=== PATIENT | female | born 1985 | race Caucasian/White ===

== ENCOUNTER 2018-04-14 07:55 | Emergency (ER) | payer OTHER ==
--- OUTSIDE RECORDS SUMMARY | 2018-04-14 08:07 | XMS REPORT | Continuity of Care Document ---
:1985 External Reference #:[id number] Author Name RAJAN Huynh Address [address] [place] [address] Care Team Providers Name Role Phone Seema Chowdhury M.D. Primary Care Physician Unavailable Payers Type Date Identification Numbers Payment Provider Subscriber Effective: Policy Number: [id number] Medicaid/Computer Jocelin Srinivasan Josue 2008 Science Expires: 2011 Group Name: 1 1 [address] PayID: [id number] [place] [address] Effective: 2011 Policy Number: [id number] Wes Germainn Medicaid Expires: 2011 PayID: [id number] [address] [place] [id number] Effective: 2011 Policy Number: [id number] [employer] Option Jocelin Srinivasan Josue Expires: 2013 PayID: [id number] [address] [address] [place] [address] Effective: 2013 Policy Number: Wes Morataya Craig Iverson [id number] Medicaid Expires: 2016 PayID: [id number] [address] [place] [address] Effective: 2016 Policy Number: [id number] Wes Srinivasan Josue Medicaid PayID: [id number] [address] [place] [id number] Advance Directives Description No Information Available Problems Description No Active Problems Family History Date Family Member(s) Problem(s) Comments Father Healthy Mother Healthy Social History Type Date Description Comments Sex Unknown Lives With Spouse Lives With Daughters Has 2 boys and 4 girls at this point, currently (8-12 weeks) Diet Healthy, Well Balanced fruits and vegetables every day, chicken, hamburger, not much fried foods or desserts, water or juice to drink Pets 1 dog Pets 2 cats Pets Fish Pets Reptile Occupation Currently Working Daycare Tobacco Use Start: Unknown Never Smoked Cigarettes ETOH Use Denies alcohol use Recreational Drug Use Denies Drug Use Tobacco Use Start: Unknown Patient has never smoked Enjoy Exercising Enjoys exercising does some walking Currently Active Patient is currently sexually active Allergies, Adverse Reactions, Alerts Description No Known Drug Allergies Medications Medication Date Status Form Strength Qnty SIG Indications Ordering Provider No Active 08/14/ Active Unknown Medications 2017 No Active 09/26/ Hx Unknown Medications 2016 - 2016 Amoxicillin 09/26/ Hx Capsules 500mg 30cap take 1 J01.80 Ismael 2017 - s capsule by Chele 10/10/ mouth 3 times , 2017 per day for 10 days for infection Penicillin V 08/31/ Hx Tablets 500mg 30tab 1 po tid for 034.0 [facility] Potassium 2013 - s strep throat Job Flowers, 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 Fluconazole 08/31/ Hx Tablets 150mg 2tabs 1 po now, september 034.0 Zakintcaleb 2013 - repeat in 1 Job Flowers, 09/26/ week if sx [employer] 2016 still present No Active 11/02/ Hx Unknown Medications 2012 - 2013 Amoxicillin/Cla 09/08/ Hx Tablets 875-125mg 20tab 1 tablet bid 382.9 Rekha palencia 2012 - s x 10 days Erick, Potassium 11/02/ [employer] 2012 Amoxicillin 07/16/ Hx Tablets 875mg 20tab 1 tablet bid 461.8 Rekha 2011 - s x 10 days Erick, 11/02/ [employer] 2012 Cortisporin 09/11/ Hx Solution [id number] 1bott 3 drops right 388.70 Casandra 2010 - -1 le ear 4 times Job Flowers, 01/11/ daily for 5 [employer] 2011 days or until resolved Doxepin HCL 08/30/ Hx Capsules 10mg 30cap 1 po qhs prn 784.0 Shawnti 2010 - s insomnia and R. Storm, 01/11/ headache [employer] 2010 Return To Work 05/15/ Hx may return to [facility] 2010 - work without R. Lionel, 05/25/ limitations [employer] 2010 Amoxicillin 04/12/ Hx Tablets 500mg 30tab 1 po tid for 528.9 [facility] 2009 - s 10 days for R. Storm, 04/22/ ear infection [employer] 2009 Zolpidem 03/22/ Hx Tablets 10mg 15tab 1/2-1 pill po 780.52 [facility] Tartrate 2009 - s qhs prn R. Lionel, 04/12/ insomnia [employer] 2009 No Work 03/08/ Hx excuse due to 308.3 Blainewnti 2010 - illness until R. Lionel, 01/11/ further [employer] 2010 evaluation No School 03/08/ Hx missed class 308.3 Shawnti 2009 - today february R. Lionel, 2009 due [employer] 2009 to ailment, seen in clinic, please excuse Cefuroxime 01/18/ Hx Tablets 500mg 20tab 1 po bid for 382.9 [place] Axetil 2010 - s otitis media R. Storm, 02/08/ and sinusitis [employer] 2009 Hydrocodone/Sebas 01/18/ Hx Tablets 5-325mg 20twe 1 po q4-6 hrs 382.9 [place] taminophen 2010 - nty prn severe R. Storm, 04/12/ pain [employer] 2009 Azithromycin 01/13/ Hx Tablets 250mg 6tabs 2 po qd first Seema 2009 - day then 1 po P. 01/25/ qd x 4 days Blegen, 2010 M.D. Gabapentin 01/11/ Hx Capsules 300mg 60cap 1 po qhs for 784.0 Shawnti 2009 - s 2 days then R. Lionel, 04/12/ bid for [employer] 2010 headache Ciprofloxacin 01/11/ Hx Tablets 250mg 10tab 1 po bid for 599.0 [facility] HCL 2010 - s urine R. Storm, 01/13/ infection [employer] 2009 Butalbital/Acet 01/08/ Hx Tablets 50-500-40 10ten 1 or 2 po prn 307.81 [place] aminophen/Caffe 2010 - mg headache Job Flowers, ine 01/25/ [employer] 2009 No Work 09/28/ Hx excuse due to 465.9 Shawnti 2009 - illness, september Job Flowers, 10/08/ return Friday [facility]- 2009October 02 Sertraline HCL 09/28/ Hx Tablets 50mg 90tab one po daily 307.81 Shawnti 2009 - s for anxiety Job Flowers, [employer] 2012 No Work Hx excuse due to 462 Shawn[facility] 2009 - illness, september Job Flowers, 02/08/ return when [facility]- 2009 fever free and feeling better for at least 24 hours Penicillin V 08/31/ Hx Tablets 500mg 30tab 1 po tid for 462 [place] Potassium 2009 - s pharyngitis Job Flowers, [facility] 2009 Sertraline HCL 07/20/ Hx Tablets 25mg 90tab one po daily 307.81 [place] 2009 - s for Job Flowers, 09/28/ adjustment [facility] 2009 reaction Fluoxetine 06/22/ Hx Capsules 10mg 90cap 1 po daily 307.81 [place] 2009 - s Job Flowers, 07/20/ [employer] 2009 Flexeril 06/22/ Hx Tablets 10mg 30tab 1/2 to 1 pill 309.0 [facility] 2009 - s q8hr prn Job Flowers, 01/25/ tension [facility] 2009 headache Fluoxetine HCL 04/20/ Hx Capsules 20mg 90cap 1 po daily Shawn[facility] 2008 - s for R. Lionel, 01/25/ depression [employer] 2009 Colace 03/13/ Hx Capsules 100mg 30cap 1 po qd 564.00 [facility] 2008 - s Job Flowers, 01/25/ [employer] 2009 Senna-Ex 03/13/ Hx Tablets 15mg 30tab 1 po daily 564.00 Shawnti 2008 - s for R. Lionel, 01/25/ constipation [facility] 2009 Amoxicillin-Pot 02/17/ Hx Tablets 875-125mg 20tab 1 po bid for 461.0 [place] Clavulanate 2008 - s 10 days for Job Flowers, 02/27/ infection [employer] 2008 Metamucil 02/10/ Hx Capsules 0.52gm 1mont 1 po bid 789.09 Shawnti 2009 - h Job Flowers, 01/25/ [employer] 2009 Amoxicillin 10/09/ Hx Capsules 250mg 30cap 1 Cap Three Filomena 2002 - s Times Daily K.WPastora 09/26/ Yumiko Mercado M.D. Medications Administered in Office Medication Date Status Form Strength Qnty SIG Indications Ordering Provider TB,Intradermal Administered Injection Rekha (PPD, Mantoux) 013 RAJAN Suarez Immunizations CPT Code Status Date Vaccine Lot # [id number] Given 03/20/2018 Influenza Virus Vaccine, Quadrivalent, 3 Yr > [id number] Quad, Preserv Free [id number] Given 04/26/2014 Influenza Virus Vaccine, Quadrivalent, 3 Yr > [id number] Quad, Preserv Free Vital Signs Date Vital Result Comment 03/20/2018 10:13am Weight 212.00 lb Weight 96.163 kg BP Systolic 140 mmHg BP Diastolic 80 mmHg Heart Rate 78 /min Body Temperature 98.3 F Respiratory Rate 16 /min Height 62 inches 5'2" BMI (Body Mass Index) 38.8 kg/m2 O2 % BldC Oximetry 98 % 09/26/2016 4:52pm Weight 202.00 lb Weight 91.627 kg BP Systolic 147 mmHg BP Diastolic 87 mmHg Heart Rate 92 /min Body Temperature 99.3 F O2 % BldC Oximetry 98 % 08/31/2013 11:12am Weight 200.00 lb Weight 90.720 kg BP Systolic 128 mmHg BP Diastolic 80 mmHg Heart Rate 76 /min Body Temperature 98.2 F Height 62.5 inches 5'2.50" BMI (Body Mass Index) 36.0 kg/m2 11/02/2012 8:14am Weight 198.00 lb Weight 89.813 kg BP Systolic 122 mmHg BP Diastolic 80 mmHg Heart Rate 80 /min Height 62.25 inches 5'2.25" BMI (Body Mass Index) 35.9 kg/m2 Last Menstrual Period [id number] 09/08/2012 10:57am Weight 202.00 lb Weight 91.627 kg BP Systolic 120 mmHg BP Diastolic 62 mmHg Heart Rate 72 /min Body Temperature 98.3 F O2 % BldC Oximetry 98 % 07/17/2011 11:41am Weight 194.00 lb Weight 87.998 kg BP Systolic 102 mmHg BP Diastolic 60 mmHg Heart Rate 88 /min Body Temperature 97.3 F 01/11/2011 8:04am Weight 196.00 lb Weight 88.906 kg BP Systolic 104 mmHg BP Diastolic 76 mmHg Heart Rate 92 /min Body Temperature 98.4 F O2 % BldC Oximetry 98 % AT Room Air 09/11/2010 1:22pm Weight 185.00 lb Weight 83.916 kg BP Systolic 136 mmHg BP Diastolic 84 mmHg Body Temperature 98.1 F 08/30/2010 8:34am Weight 181.00 lb Weight 82.102 kg BP Systolic 122 mmHg BP Diastolic 80 mmHg Heart Rate 78 /min O2 % BldC Oximetry 97 % 04/12/2010 9:35am Weight 179.00 lb Weight 81.194 kg BP Systolic 130 mmHg BP Diastolic 100 mmHg Heart Rate 84 /min Body Temperature 98.6 F 03/22/2010 9:29am Weight 181.00 lb Weight 82.102 kg BP Systolic 120 mmHg BP Diastolic 90 mmHg Heart Rate 78 /min 03/08/2010 2:19pm Weight 181.00 lb Weight 82.102 kg BP Systolic 138 mmHg BP Diastolic 70 mmHg Heart Rate 92 /min Body Temperature 98.2 F 01/25/2010 2:54pm Weight 188.00 lb Weight 85.277 kg BP Systolic 124 mmHg BP Diastolic 70 mmHg Heart Rate 80 /min Body Temperature 98.5 F 01/18/2010 4:12pm Weight 186.00 lb Weight 84.370 kg BP Systolic 120 mmHg BP Diastolic 90 mmHg Heart Rate 68 /min Body Temperature 98.7 F O2 % BldC Oximetry 98 % AT Room Air 01/13/2010 10:21am Weight 185.00 lb Weight 83.916 kg BP Systolic 128 mmHg BP Diastolic 100 mmHg Heart Rate 76 /min Body Temperature 98.8 F 01/11/2010 3:31pm Weight 184.00 lb Weight 83.462 kg BP Systolic 118 mmHg BP Diastolic 80 mmHg Heart Rate 72 /min 01/08/2010 4:16pm Weight 186.00 lb Weight 84.370 kg BP Systolic 102 mmHg BP Diastolic 80 mmHg Heart Rate 72 /min 09/28/2009 8:14am Weight 184.00 lb Weight 83.462 kg BP Systolic 124 mmHg BP Diastolic 82 mmHg Heart Rate 78 /min Body Temperature 97.6 F 08/31/2009 2:31pm Weight 174.00 lb Weight 78.926 kg BP Systolic 114 mmHg BP Diastolic 78 mmHg Heart Rate 76 /min Body Temperature 98.8 F 08/10/2009 8:57am Weight 172.00 lb Weight 78.019 kg BP Systolic 100 mmHg BP Diastolic 60 mmHg Heart Rate 78 /min 07/20/2009 8:41am Weight 172.00 lb Weight 78.019 kg BP Systolic 118 mmHg BP Diastolic 80 mmHg Heart Rate 68 /min 06/22/2009 2:53pm Weight 168.00 lb Weight 76.205 kg BP Systolic 128 mmHg BP Diastolic 83 mmHg Heart Rate 60 /min Body Temperature 98.6 F O2 % BldC Oximetry 97 % At Room Air 05/15/2009 8:50am Weight 170.00 lb Weight 77.112 kg BP Systolic 108 mmHg BP Diastolic 84 mmHg Heart Rate 84 /min 04/20/2009 4:48pm Weight 167.00 lb Weight 75.751 kg BP Systolic 120 mmHg BP Diastolic 68 mmHg Heart Rate 80 /min 03/13/2009 8:31am Weight 167.00 lb Weight 75.751 kg BP Systolic 110 mmHg BP Diastolic 74 mmHg Heart Rate 72 /min 02/17/2009 3:21pm Weight 167.00 lb Weight 75.751 kg BP Systolic 118 mmHg BP Diastolic 72 mmHg Heart Rate 80 /min Body Temperature 98.2 F 02/10/2009 10:16am Weight 156.00 lb Weight 70.762 kg BP Systolic 118 mmHg BP Diastolic 68 mmHg Heart Rate 72 /min Body Temperature 97.6 F Last Menstrual Period 0 still nursing 10/09/2001 11:58am Weight 126.00 lb BP Systolic 120 mmHg BP Diastolic 66 mmHg Body Temperature 98.6 F Respiratory Rate 16 /min To Talk WH Weight Percentile 57th 10/09/2001 11:53am Weight Percentile <5th 10/01/2001 3:02pm Weight 128.00 lb BP Systolic 96 mmHg BP Diastolic 60 mmHg Heart Rate 72 /min Body Temperature 98.5 F Weight Percentile 60th Results Test Date Facility Test Result H/L Range Note Wound 08/14/2017 [facility] Wound/Misc SEE RESULT 1, 2 Culture/Sensi [phone] Culture-Gram BELOW Stain Urinalysis 12/20/2015 [facility] Urine Color Yellow Profile [phone] Urine Appearance Cloudy Urine Specific [place] 1.017 1.010-1.030 Urine pH 6.0 5-9 Urine Urobilinogen Negative Negative Urine Ketones Negative Negative Urine Protein Negative Negative Urine Leukocytes Trace Negative Urine Blood 1+ Negative * * Negative 3 Urine Nitrite Negative Negative Urine Bilirubin Negative Negative Urine Glucose Negative Negative Urine White Blood Cell 1+(6-10/hpf) Absent Urine Red Blood Cell 2+(6-10/hpf) Absent Urine Bacteria 1+ Absent Urine Squamous Epithelial Cell Present Absent Laboratory test 12/20/2015 [facility] Urine Culture SEE RESULT 4 finding [phone] BELOW Urinalysis Profile 11/04/2015 [facility] Urine Color Yellow [phone] Urine Appearance Cloudy Urine Specific [place] 1.018 1.010-1.030 Urine pH 5.0 5-9 Urine Urobilinogen Negative Negative Urine Ketones 2+ Negative Urine Protein Negative Negative Urine Leukocytes 2+ Negative Urine Blood 1+ Negative Urine Nitrite Negative Negative Urine Bilirubin Negative Negative Urine Glucose Negative Negative Urine White Blood Cell 3+(>20/hpf) Absent Urine Red Blood Cell 1+(3-5/hpf) Absent Urine Bacteria 1+ Absent Urine Squamous Epithelial Cell Present Absent Laboratory test 11/04/2015 [facility] Urine Culture SEE RESULT 5 finding [phone] BELOW Urine DIP 11/02/2012 [facility] House Lab Leukocytes NEG Neg [phone] Urine Nitrites NEG Neg Urine pH 5 5-6 Total Protein, Urine NEG Neg Urine Glucose NORM Norm Urine Ketones NEG Neg Urobilinogen NORM Norm Urine Bilirubin NEG Neg Urine Blood TRACE-MENSES Neg Specific [place] 1.02 1.01-1.02 (HCG) 02/07/2012 [facility] Specific 1.021 1.010-1.030 Urine [phone] [place] Urine NEGATIVE Negative 6 CBC Auto Diff 01/28/2012 [facility] White Blood 6.2 CUMM 4.8-10.8 [phone] Count Red Cell Count 4.36 CUMM 4.2-5.4 Hemoglobin 14.0 g/dL 12.0-16.0 Hematocrit 41 % 35-47 Mean Corpuscular Volume 93 um3 79-97 Mean Corpuscular Hemoglob 32 pg High 27-31 Mean Corpuscular HGB Cone 34 g/dL 32-36 Redcell Distribution WDTH 14 % 10.5-15 Platelet Count 157 CUMM 150-450 Mean Platelet Volume 9.4 um3 7.4-10.4 Gran % 56.5 % 38-83 Lymph % 35.2 % 20-45 Mononuclear % 6.9 % 1-9 Eosinophil % 1.1 % 0-6 Basophil % 0.3 % 0-2 Abs Lymphs 2.2 1.0-4.8 Abs Mononuclear 0.4 0-0.8 Absolute Neutrophil Count 3.5 1.5-7.7 Abs Eosinophils 0.1 0-0.6 Abs Basophils 0 0-0.2 Basic Metabolic 01/28/2012 [facility] Sodium 138 mmol /L 135-145 Panel [phone] Potassium 4.1 mmol/L 3.5-5.0 Chloride 104 mmol/L 101-111 Co2 (Carbon Dioxide) 27.0 mmol/L 22-32 Anion Gap 7.0 mmol/L 2-11 7 Glucose 80 mg/dL 70-100 BUN 11 mg/dL 6-24 Creatinine 0.8 mg/dL 0.50-1.40 One Over Creatinine 1.25 BUN/Creatinine Ratio 13.8 8-20 Calcium 9.7 mg/dL 8.1-9.9 eGFR Non- 86.0 > 60 eGFR 110.7 > 60 8 Blood 08/22/2011 [facility] M <SEE 9 Culture [phone] NOTE> CBC Auto 08/22/2011 [facility] White 11.6 CUMM High 4.8-1 Diff [phone] Blood 0.8 Count Red Cell Count 3.71 CUMM Low 4.2-5.4 Hemoglobin 12.3 g/dL 12.0-16.0 Hematocrit 34 % Low 35-47 Mean Corpuscular Volume 93 um3 79-97 Mean Corpuscular Hemoglob 33 pg High 27-31 Mean Corpuscular HGB Cone 36 g/dL 32-36 Redcell Distribution WDTH 14 % 10.5-15 Platelet Count 148 CUMM Low 150-450 Mean Platelet Volume 9.2 um3 7.4-10.4 Gran % 76.4 % 38-83 Lymph % 15.0 % Low 25-47 Mononuclear % 8.1 % 1-9 Eosinophil % 0.3 % 0-6 Basophil % 0.2 % 0-2 Abs Lymphs 1.7 1.0-4.8 Abs Mononuclear 0.9 High 0-0.8 Absolute Neutrophil Count 9.0 High 1.5-7.7 Abs Eosinophils 0 0-0.6 Abs Basophils 0 0-0.2 Laboratory test 08/22/2011 [facility] Lipase 19 U/L Low 22-51 finding [phone] Urinalysis 08/22/2011 [facility] Ua Color YELLOW Yellow W/Microscopic [phone] Appearance-Urine CLEAR Clear Specific [place]-Ur 1.011 1.010-1.030 Esterase-Urine 3+ Negative Nitrite NEGATIVE Negative Mlksssxvqzai-Av-YYH NEGATIVE Negative Protein-Urine TRACE Negative PH-Urine 5.5 5-9 Blood-Urine 2+ Negative Ketones-Urine NEGATIVE Negative Bilirubin-Ur NEGATIVE Negative Glucose-Urine NEGATIVE Negative WBC-Urine TNTC 0-5 RBC-Urine TNTC 0-2 Mucus Urine SMALL None Epith Cells-Ur FEW None Bacteria-Urine 1+ None Comp Metabolic Panel 08/22/2011 [facility] Sodium 141 mmol/L 135-145 [phone] Potassium 4.9 mmol/L 3.5-5.0 Chloride 107 mmol/L 101-111 Co2 (Carbon Dioxide) 25.0 mmol/L 22-32 Anion Gap 9.0 mmol/L 2-11 10 Glucose 95 mg/dL 70-100 BUN 6 mg/dL 6-24 Creatinine 0.5 mg/dL Low 0.50-1.40 One Over Creatinine 2.00 BUN/Creatinine Ratio 12.0 8-20 Calcium 8.9 mg/dL 8.1-9.9 Total Protein 5.8 GM/DL Low 6.2-8.1 Albumin 3.2 GM/DL Low 3.6-5.4 Globulin 2.6 GM/DL 2-4 Albumin/Globulin Ratio 1.2 1-3 Bilirubin Total 0.7 mg/dL 0.4-1.5 11 Alkaline Phosphatase 75 U/L 30-110 Alt (SGPT) 12 U/L Low 14-54 Ast (Sgot) 16 U/L 12-42 eGFR Non- 148.0 > 60 eGFR 190.3 > 60 12 Comp Metabolic Panel 08/03/2011 [facility] Sodium 137 mmol/L 135-145 [phone] Potassium 4.1 mmol/L 3.5-5.0 Chloride 105 mmol/L 101-111 Co2 (Carbon Dioxide) 25.0 mmol/L 22-32 Anion Gap 7.0 mmol/L 2-11 13 Glucose 93 mg/dL 70-100 BUN 5 mg/dL Low 6-24 Creatinine 0.5 mg/dL Low 0.50-1.40 One Over Creatinine 2.00 BUN/Creatinine Ratio 10.0 8-20 Calcium 8.6 mg/dL 8.1-9.9 Total Protein 6.6 GM/DL 6.2-8.1 Albumin 3.3 GM/DL Low 3.6-5.4 Globulin 3.3 GM/DL 2-4 Albumin/Globulin Ratio 1.0 1-3 Bilirubin Total 0.7 mg/dL 0.4-1.5 14 Alkaline Phosphatase 66 U/L 30-110 Alt (SGPT) 14 U/L 14-54 Ast (Sgot) 16 U/L 12-42 eGFR Non- 148.0 > 60 eGFR 190.3 > 60 15 Laboratory test 08/03/2011 [facility] C Reactive 6.6 mg/dL High Less Than finding [phone] Protein 0.5 CBC Auto Diff 08/03/2011 [facility] White Blood 10.0 CUMM 4.8-10.8 [phone] Count Red Cell Count 3.91 CUMM Low 4.2-5.4 Hemoglobin 12.6 g/dL 12.0-16.0 Hematocrit 36 % 35-47 Mean Corpuscular Volume 93 um3 79-97 Mean Corpuscular Hemoglob 32 pg High 27-31 Mean Corpuscular HGB Cone 35 g/dL 32-36 Redcell Distribution WDTH 14 % 10.5-15 Platelet Count 159 CUMM 150-450 Mean Platelet Volume 9.7 um3 7.4-10.4 16 Manual Differential 08/03/2011 [facility] Polysegmented 76 % 38-83 [phone] Neutrophil Lymphocyte 15 % Low 25-47 Monocyte 8 % 0-13 Eosinophil 1 % 0-6 Absolute Neutrophil Count 7.6 RBC Morphology NORMAL Urinalysis 08/03/2011 [facility] Ua Color WATLER Yellow W/Microscopic [phone] Appearance-Urine TURBID Clear Specific [place]-Ur 1.021 1.010-1.030 Esterase-Urine 3+ Negative Nitrite NEGATIVE Negative Dcgziffteupm-Lv-UKY NEGATIVE Negative Protein-Urine 3+ Negative PH-Urine 6.0 5-9 Blood-Urine 3+ Negative Ketones-Urine NEGATIVE Negative Bilirubin-Ur NEGATIVE Negative Glucose-Urine NEGATIVE Negative WBC-Urine TNTC 0-5 RBC-Urine TNTC 0-2 Bacteria-Urine 4+ None Crystals-Urine (SEE NOTE) None 17 CBC No Diff 07/19/2011 [facility] White Blood 7.1 CUMM 4.8-10.8 [phone] Count Red Cell Count 4.05 CUMM Low 4.2-5.4 Hemoglobin 12.8 g/dL 12.0-16.0 Hematocrit 37 % 35-47 Mean Corpuscular Volume 91 um3 79-97 Mean Corpuscular Hemoglob 32 pg High 27-31 Mean Corpuscular HGB Cone 35 g/dL 32-36 Redcell Distribution WDTH 14 % 10.5-15 Platelet Count 134 CUMM Low 150-450 Mean Platelet Volume 9.4 um3 7.4-10.4 Comp Metabolic Panel 07/19/2011 [facility] Sodium 135 mmol/L 135-145 [phone] Potassium 3.5 mmol/L 3.5-5.0 Chloride 105 mmol/L 101-111 Co2 (Carbon Dioxide) 21.0 mmol/L Low 22-32 Anion Gap 9.0 mmol/L 2-11 18 Glucose 130 mg/dL High 70-100 BUN 8 mg/dL 6-24 Creatinine 0.6 mg/dL 0.50-1.40 One Over Creatinine 1.66 BUN/Creatinine Ratio 13.3 8-20 Calcium 8.3 mg/dL 8.1-9.9 Total Protein 6.6 GM/DL 6.2-8.1 Albumin 3.3 GM/DL Low 3.6-5.4 Globulin 3.3 GM/DL 2-4 Albumin/Globulin Ratio 1.0 1-3 Bilirubin Total 1.0 mg/dL 0.4-1.5 19 Alkaline Phosphatase 67 U/L 30-110 Alt (SGPT) 14 U/L 14-54 Ast (Sgot) 22 U/L 12-42 eGFR Non- 119.9 > 60 eGFR 154.2 > 60 20 Urinalysis 07/19/2011 [facility] Ua Color WALTER Yellow W/Microscopic [phone] Appearance-Urine CLEAR Clear Specific [place]-Ur 1.027 1.010-1.030 Esterase-Urine NEGATIVE Negative Nitrite NEGATIVE Negative Uovyeqlnsskr-Zk-ZHU NEGATIVE Negative Protein-Urine 1+ Negative PH-Urine 5.5 5-9 Blood-Urine 3+ Negative Ketones-Urine 3+ Negative Bilirubin-Ur SEE ICTOTEST Negative Glucose-Urine NEGATIVE Negative WBC-Urine RARE 0-5 RBC-Urine 15-20 0-2 Mucus Urine LARGE None Epith Cells-Ur MANY None Laboratory test 07/19/2011 [facility] Ictotest NEGATIVE 21 finding [phone] CBC Auto Diff 11/20/2010 [facility] White Blood 8.4 CUMM 4.8-10 [phone] Count .8 Red Cell Count 5.00 CUMM 4.2-5.4 Hemoglobin 15.6 g/dL 12.0-16.0 Hematocrit 46 % 35-47 Mean Corpuscular Volume 93 um3 79-97 Mean Corpuscular Hemoglob 31 pg 27-31 Mean Corpuscular HGB Cone 34 g/dL 32-36 Redcell Distribution WDTH 14 % 10.5-15 Platelet Count 195 CUMM 150-450 Mean Platelet Volume 9.2 um3 7.4-10.4 Gran % 74.2 % 38-83 Lymph % 15.8 % Low 25-47 Mononuclear % 9.1 % High 1-9 Eosinophil % 0.6 % 0-6 Basophil % 0.3 % 0-2 Abs Lymphs 1.3 1.0-4.8 Abs Mononuclear 0.8 0-0.8 Absolute Neutrophil Count 6.2 1.5-7.7 Abs Eosinophils 0.1 0-0.6 Abs Basophils 0 0-0.2 22 Comp Metabolic Panel 11/20/2010 [facility] Sodium 138 mmol/L 135-145 [phone] Potassium 3.7 mmol/L 3.5-5.0 Chloride 108 mmol/L 101-111 Co2 (Carbon Dioxide) 21.0 mmol/L Low 22-32 Anion Gap 9.0 mmol/L 2-11 23 Glucose 123 mg/dL High 70-100 BUN 17 mg/dL 6-24 Creatinine 0.70 mg/dL 0.50-1.40 One Over Creatinine 1.40 BUN/Creatinine Ratio 24.3 High 8-20 Calcium 9.4 mg/dL 8.1-9.9 Total Protein 8.3 GM/DL High 6.2-8.1 Albumin 4.8 GM/DL 3.6-5.4 Globulin 3.5 GM/DL 2-4 Albumin/Globulin Ratio 1.4 1-3 Bilirubin Total 1.8 mg/dL High 0.4-1.5 24 Alkaline Phosphatase 80 U/L 30-110 Alt (SGPT) 17 U/L 14-54 Ast (Sgot) 20 U/L 12-42 eGFR Non- 101.1 > 60 eGFR 130.1 > 60 25 Laboratory test 11/20/2010 [facility] Magnesium 2.1 mg/dL 1.7-2.6 finding [phone] Lipase 20 U/L Low 22-51 (HCG) Serum NEGATIVE Negative 26 Urinalysis 11/20/2010 [facility] Ua Color WALTER Yellow W/Microscopic [phone] Appearance-Urine CLEAR Clear Specific [place]-Ur 1.031 High 1.010-1.030 Esterase-Urine NEGATIVE Negative Nitrite NEGATIVE Negative Ayvoalubimud-Xe-UEJ NEGATIVE Negative Protein-Urine 1+ Negative PH-Urine 6.0 5-9 Blood-Urine 1+ Negative Ketones-Urine NEGATIVE Negative Bilirubin-Ur SEE ICTOTEST Negative Glucose-Urine NEGATIVE Negative WBC-Urine 0-2 0-5 RBC-Urine 2-3 0-2 Mucus Urine SMALL None Epith Cells-Ur MODERATE None Laboratory test 11/20/2010 [facility] Ictotest NEGATIVE 27 finding [phone] CBC Auto Diff 08/26/2010 [facility] White Blood 7.2 CUMM 4.8-10 [phone] Count .8 Red Cell Count 4.74 CUMM 4.2-5.4 Hemoglobin 14.8 g/dL 12.0-16.0 Hematocrit 43 % 35-47 Mean Corpuscular Volume 90 um3 79-97 Mean Corpuscular Hemoglob 31 pg 27-31 Mean Corpuscular HGB Cone 35 g/dL 32-36 Redcell Distribution WDTH 12 % 10.5-15 Platelet Count 158 CUMM 150-450 Mean Platelet Volume 9.0 um3 7.4-10.4 Gran % 61.0 % 38-83 Lymph % 28.6 % 25-47 Mononuclear % 8.7 % 1-9 Eosinophil % 1.0 % 0-6 Basophil % 0.7 % 0-2 Abs Lymphs 2.1 1.0-4.8 Abs Mononuclear 0.6 0-0.8 Absolute Neutrophil Count 4.3 1.5-7.7 Abs Eosinophils 0.1 0-0.6 Abs Basophils 0.1 0-0.2 Basic Metabolic 08/26/2010 [facility] Sodium 138 mmol /L 135-145 Panel [phone] Potassium 4.2 mmol/L 3.5-5.0 Chloride 103 mmol/L 101-111 Co2 (Carbon Dioxide) 27.0 mmol/L 22-32 Anion Gap 8.0 mmol/L 2-11 28 Glucose 97 mg/dL 70-100 BUN 17 mg/dL 6-24 Creatinine 0.80 mg/dL 0.50-1.40 One Over Creatinine 1.20 BUN/Creatinine Ratio 21.3 High 8-20 Calcium 9.6 mg/dL 8.1-9.9 eGFR Non- 86.7 > 60 eGFR 111.5 > 60 29 PT W/Inr 08/26/2010 [facility] Inr 1.08 0.82-1.17 30 [phone] Protime 12.8 SEC 10.2-14.8 31 Laboratory test 08/26/2010 [facility] D Dimer < 200 Less 32 finding [phone] Quantitative NG/ML Than 230 (HCG) Serum NEGATIVE Negative 33 CBC Auto Diff 07/31/2010 [facility] White Blood 5.2 CUMM 4.8-10.8 34 [phone] Count Red Cell Count 4.57 CUMM 4.2-5.4 Hemoglobin 14.2 g/dL 12.0-16.0 Hematocrit 41 % 35-47 Mean Corpuscular Volume 90 um3 79-97 Mean Corpuscular Hemoglob 31 pg 27-31 Mean Corpuscular HGB Cone 35 g/dL 32-36 Redcell Distribution WDTH 13 % 10.5-15 Platelet Count 165 CUMM 150-450 Mean Platelet Volume 8.5 um3 7.4-10.4 Gran % 57.4 % 38-83 Lymph % 32.3 % 25-47 Mononuclear % 8.3 % 1-9 Eosinophil % 1.2 % 0-6 Basophil % 0.8 % 0-2 Abs Lymphs 1.7 1.0-4.8 Abs Mononuclear 0.4 0-0.8 Absolute Neutrophil Count 3.0 1.5-7.7 Abs Eosinophils 0.1 0-0.6 Abs Basophils 0 0-0.2 Comp Metabolic Panel 07/31/2010 [facility] Sodium 136 mmol/L 135-145 [phone] Potassium 4.1 mmol/L 3.5-5.0 Chloride 105 mmol/L 101-111 Co2 (Carbon Dioxide) 28.0 mmol/L 22-32 Anion Gap 3.0 mmol/L 2-11 35 Glucose 94 mg/dL 70-100 BUN 12 mg/dL 6-24 Creatinine 0.60 mg/dL 0.50-1.40 One Over Creatinine 1.60 BUN/Creatinine Ratio 20.0 8-20 Calcium 9.3 mg/dL 8.1-9.9 Total Protein 7.3 GM/DL 6.2-8.1 Albumin 4.2 GM/DL 3.6-5.4 Globulin 3.1 GM/DL 2-4 Albumin/Globulin Ratio 1.4 1-3 Bilirubin Total 0.7 mg/dL 0.4-1.5 36 Alkaline Phosphatase 75 U/L 30-110 Alt (SGPT) 12 U/L Low 14-54 Ast (Sgot) 16 U/L 12-42 eGFR Non- 120.8 > 60 eGFR 155.4 > 60 37 Urinalysis 07/31/2010 [facility] Ua Color YELLOW Yellow W/Microscopic [phone] Appearance-Urine CLEAR Clear Specific [place]-Ur 1.019 1.010-1.030 Esterase-Urine NEGATIVE Negative Nitrite NEGATIVE Negative Shbmfrwohagw-Ms-MOY NEGATIVE Negative Protein-Urine NEGATIVE Negative PH-Urine 6.5 5-9 Blood-Urine TRACE Negative Ketones-Urine NEGATIVE Negative Bilirubin-Ur NEGATIVE Negative Glucose-Urine NEGATIVE Negative WBC-Urine 0-2 0-5 RBC-Urine 1-3 0-2 Epith Cells-Ur FEW None Bacteria-Urine TRACE None 05/01/2010 [facility] Specific > 1.060 High 1.010-1.030 (HCG) Urine [phone] [place] Urine NEGATIVE Negative 38 Laboratory test 04/30/2010 [facility] Lipase 15 U/L Low 22-51 finding [phone] Manual 04/30/2010 [facility] Polysegmented 86 % High 38-83 Differential [phone] Neutrophil Lymphocyte 6 % Low 25-47 Monocyte 8 % 0-13 Absolute Neutrophil Count 9.7 RBC Morphology NORMAL CBC With 04/30/2010 [facility] White Blood 11.3 CUMM High 4.8-10.8 Electronic Diff [phone] Count Red Cell Count 4.70 CUMM 4.2-5.4 Hemoglobin 14.9 g/dL 12.0-16.0 Hematocrit 42 % 35-47 Mean Corpuscular Volume 90 um3 79-97 Mean Corpuscular Hemoglob 32 pg High 27-31 Mean Corpuscular HGB Cone 35 g/dL 32-36 Redcell Distribution WDTH 13 % 10.5-15 Platelet Count 212 CUMM 150-450 Mean Platelet Volume 9.0 um3 7.4-10.4 Laboratory test 04/30/2010 [facility] Ictotest NEGATIVE 39 finding [phone] Urinalysis 04/30/2010 [facility] Ua Color WALTER Yellow W/Microscopic [phone] Appearance-Urine CLEAR Clear Specific [place]-Ur 1.029 1.010-1.030 Esterase-Urine NEGATIVE Negative Nitrite NEGATIVE Negative Yvpvgmkerqrc-Tr-UAR NEGATIVE Negative Protein-Urine 1+ Negative PH-Urine 6.0 5-9 Blood-Urine 1+ Negative Ketones-Urine TRACE Negative Bilirubin-Ur SEE ICTOTEST Negative Glucose-Urine NEGATIVE Negative WBC-Urine 0-2 0-5 RBC-Urine 0-2 0-2 Epith Cells-Ur FEW None Bacteria-Urine 2+ None (HCG) 04/30/2010 [facility] Specific 1.029 1.010-1.030 Urine [phone] [place] Urine NEGATIVE Negative 40 Comp Metabolic Panel 04/30/2010 [facility] Sodium 143 mmol/L 135-145 [phone] Potassium 4.7 mmol/L 3.5-5.0 Chloride 106 mmol/L 101-111 Co2 (Carbon Dioxide) 26.0 mmol/L 22-32 Anion Gap 11.0 mmol/L 2-11 41 Glucose 130 mg/dL High 70-100 BUN 11 mg/dL 6-24 Creatinine 0.70 mg/dL 0.50-1.40 One Over Creatinine 1.40 BUN/Creatinine Ratio 15.7 8-20 Calcium 10.1 mg/dL High 8.1-9.9 Total Protein 8.7 GM/DL High 6.2-8.1 Albumin 4.9 GM/DL 3.6-5.4 Globulin 3.8 GM/DL 2-4 Albumin/Globulin Ratio 1.3 1-3 Bilirubin Total 2.0 mg/dL High 0.4-1.5 42 Alkaline Phosphatase 80 U/L 30-110 Alt (SGPT) 16 U/L 14-54 Ast (Sgot) 30 U/L 12-42 eGFR Non- 107.5 > 60 eGFR 130.1 > 60 43 CBC With 04/09/2010 [facility] White Blood 4.9 CUMM 4.8-10.8 Electronic Diff [phone] Count Red Cell Count 4.39 CUMM 4.2-5.4 Hemoglobin 13.9 g/dL 12.0-16.0 Hematocrit 40 % 35-47 Mean Corpuscular Volume 92 um3 79-97 Mean Corpuscular Hemoglob 32 pg High 27-31 Mean Corpuscular HGB Cone 35 g/dL 32-36 Redcell Distribution WDTH 13 % 10.5-15 Platelet Count 130 CUMM Low 150-450 Mean Platelet Volume 7.7 um3 7.4-10.4 Gran % 67.0 % 38-83 Lymph % 22.4 % Low 25-47 Mononuclear % 9.7 % High 1-9 Eosinophil % 0.6 % 0-6 Basophil % 0.3 % 0-2 Abs Lymphs 1.1 1.0-4.8 Abs Mononuclear 0.5 0-0.8 Absolute Neutrophil Count 3.2 1.5-7.7 Abs Eosinophils 0 0-0.6 Abs Basophils 0 0-0.2 Comp Metabolic Panel 04/09/2010 [facility] Sodium 139 mmol/L 135-145 [phone] Potassium 3.9 mmol/L 3.5-5.0 Chloride 103 mmol/L 101-111 Co2 (Carbon Dioxide) 29.0 mmol/L 22-32 Anion Gap 7.0 mmol/L 2-11 44 Glucose 93 mg/dL 70-100 45 BUN 11 mg/dL 6-24 Creatinine 0.60 mg/dL 0.50-1.40 One Over Creatinine 1.60 BUN/Creatinine Ratio 18.3 8-20 Calcium 9.0 mg/dL 8.1-9.9 Total Protein 7.6 GM/DL 6.2-8.1 Albumin 4.0 GM/DL 3.6-5.4 Globulin 3.6 GM/DL 2-4 Albumin/Globulin Ratio 1.1 1-3 Bilirubin Total 0.9 mg/dL 0.4-1.5 46 Alkaline Phosphatase 61 U/L 30-110 Alt (SGPT) 13 U/L Low 14-54 Ast (Sgot) 19 U/L 12-42 eGFR Non- 128.4 > 60 eGFR 155.4 > 60 47 Laboratory test 04/09/2010 [facility] NEGATIVE Negative 48 finding [phone] (HCG) Serum Urinalysis 04/09/2010 [facility] Ua Color YELLOW Yellow W/Microscopic [phone] Appearance-Urine CLEAR Clear Specific [place]-Ur 1.028 1.010-1.030 Esterase-Urine NEGATIVE Negative Nitrite NEGATIVE Negative Jdnnrnehvstm-Xk-OQU NEGATIVE Negative Protein-Urine TRACE Negative PH-Urine 6.0 5-9 Blood-Urine 2+ Negative Ketones-Urine 2+ Negative Bilirubin-Ur NEGATIVE Negative Glucose-Urine NEGATIVE Negative WBC-Urine 3-5 0-5 RBC-Urine 0-2 0-2 Mucus Urine LARGE None Epith Cells-Ur FEW None Bacteria-Urine TRACE None Amorphous Sed-U TRACE None Comp Metabolic Panel 04/06/2010 [facility] Sodium 137 mmol/L 135-145 [phone] Potassium 4.0 mmol/L 3.5-5.0 Chloride 103 mmol/L 101-111 Co2 (Carbon Dioxide) 27.0 mmol/L 22-32 Anion Gap 7.0 mmol/L 2-11 49 Glucose 115 mg/dL High 70-100 50 BUN 11 mg/dL 6-24 Creatinine 0.70 mg/dL 0.50-1.40 One Over Creatinine 1.40 BUN/Creatinine Ratio 15.7 8-20 Calcium 9.0 mg/dL 8.1-9.9 Total Protein 7.9 GM/DL 6.2-8.1 Albumin 4.4 GM/DL 3.6-5.4 Globulin 3.5 GM/DL 2-4 Albumin/Globulin Ratio 1.3 1-3 Bilirubin Total 0.8 mg/dL 0.4-1.5 51 Alkaline Phosphatase 65 U/L 30-110 Alt (SGPT) 14 U/L 14-54 Ast (Sgot) 17 U/L 12-42 eGFR Non- 107.5 > 60 eGFR 130.1 > 60 52 CBC With 04/06/2010 [facility] White Blood 7.3 CUMM 4.8-10.8 Electronic Diff [phone] Count Red Cell Count 4.60 CUMM 4.2-5.4 Hemoglobin 14.7 g/dL 12.0-16.0 Hematocrit 43 % 35-47 Mean Corpuscular Volume 93 um3 79-97 Mean Corpuscular Hemoglob 32 pg High 27-31 Mean Corpuscular HGB Cone 35 g/dL 32-36 Redcell Distribution WDTH 13 % 10.5-15 Platelet Count 121 CUMM Low 150-450 Mean Platelet Volume 8.2 um3 7.4-10.4 Manual 04/06/2010 [facility] Polysegmented 85 % High 38-83 Differential [phone] Neutrophil Band Neutrophil 2 % 0-8 Lymphocyte 8 % Low 25-47 Monocyte 5 % 0-13 Absolute Neutrophil Count 6.3 RBC Morphology NORMAL Blood Culture 04/06/2010 [facility] Aerobic Culture NG5 53 [phone] Bottle Anaerobic Culture 04/06/2010 [facility] Anaerobic NG5 54 Bottle [phone] Culture Bottle Urinalysis 04/06/2010 [facility] Ua Color YELLOW Yellow W/Microscopic [phone] Appearance-Urine CLEAR Clear Specific [place]-Ur 1.024 1.010-1.030 Esterase-Urine NEGATIVE Negative Nitrite NEGATIVE Negative Fuapgnqjhfsy-Je-VQL NEGATIVE Negative Protein-Urine NEGATIVE Negative PH-Urine 5.0 5-9 Blood-Urine 3+ Negative Ketones-Urine NEGATIVE Negative Bilirubin-Ur NEGATIVE Negative Glucose-Urine NEGATIVE Negative WBC-Urine 0-2 0-5 RBC-Urine 5-10 0-2 Mucus Urine SMALL None Epith Cells-Ur FEW None Bacteria-Urine 1+ None Laboratory test 02/07/2010 [facility] Iron Total 90 g/dL 28-170 finding [phone] Ferritin 22 NG/ML 11.0-307 Vitamin B12 576 pg/mL 180-914 Folic Acid 6.0 NG/ML 2-16 Comp Metabolic Panel 01/10/2010 [facility] Sodium 137 mmol/L 135-145 [phone] Potassium 3.6 mmol/L 3.5-5.0 Chloride 105 mmol/L 101-111 Co2 (Carbon Dioxide) 24.0 mmol/L 22-32 Anion Gap 8.0 mmol/L 2-11 55 Glucose 88 mg/dL 70-100 56 BUN 12 mg/dL 6-24 Creatinine 0.70 mg/dL 0.50-1.40 One Over Creatinine 1.40 BUN/Creatinine Ratio 17.1 8-20 Calcium 9.1 mg/dL 8.1-9.9 57 Total Protein 7.3 GM/DL 6.2-8.1 Albumin 4.4 GM/DL 3.6-5.4 Globulin 2.9 GM/DL 2-4 Albumin/Globulin Ratio 1.5 1-3 Bilirubin Total 1.1 mg/dL 0.4-1.5 58 Alkaline Phosphatase 69 U/L 30-110 Alt (SGPT) 11 U/L Low 14-54 Ast (Sgot) 16 U/L 12-42 eGFR Non- 108.4 > 60 eGFR 131.1 > 60 59 Laboratory test 01/10/2010 [facility] NEGATIVE Negative 60 finding [phone] (HCG) Serum CBC With 01/10/2010 [facility] White Blood 7.6 CUMM 4.8-10.8 Electronic Diff [phone] Count Red Cell Count 4.55 CUMM 4.2-5.4 Hemoglobin 14.3 g/dL 12.0-16.0 Hematocrit 41 % 35-47 Mean Corpuscular Volume 91 um3 79-97 Mean Corpuscular Hemoglob 31 pg 27-31 Mean Corpuscular HGB Cone 35 g/dL 32-36 Redcell Distribution WDTH 13 % 10.5-15 Platelet Count 163 CUMM 150-450 Mean Platelet Volume 8.1 um3 7.4-10.4 Manual Differential 01/10/2010 [facility] Polysegmented 72 % 38-83 [phone] Neutrophil Lymphocyte 21 % Low 25-47 Monocyte 6 % 0-13 Atypical Lymph 1 % 0-6 Absolute Neutrophil Count 5.4 Anisocytosis SLIGHT Urinalysis 01/10/2010 [facility] Ua Color YELLOW Yellow W/Microscopic [phone] Appearance-Urine CLEAR Clear Specific [place]-Ur 1.022 1.010-1.030 Esterase-Urine 1+ Negative Nitrite NEGATIVE Negative Ondeyvoscckx-Qv-XZL NEGATIVE Negative Protein-Urine NEGATIVE Negative PH-Urine 5.0 5-9 Blood-Urine NEGATIVE Negative Ketones-Urine NEGATIVE Negative Bilirubin-Ur SEE ICTOTEST Negative Glucose-Urine NEGATIVE Negative WBC-Urine 5-10 0-5 RBC-Urine 3-5 0-2 Mucus Urine SMALL None Epith Cells-Ur MODERATE None Bacteria-Urine 1+ None Laboratory test 01/10/2010 [facility] Ictotest NEGATIVE 61 finding [phone] Urine Culture & 01/10/2010 [facility] Urine Culture NF1 62 Sensitivi [phone] Sensitivi Comp Metabolic 11/30/2009 [facility] Sodium 140 mmol/ L 135-14 Panel [phone] 5 Potassium 4.0 mmol/L 3.5-5.0 Chloride 106 mmol/L 101-111 Co2 (Carbon Dioxide) 25.0 mmol/L 22-32 Anion Gap 9.0 mmol/L 2-11 63 Glucose 85 mg/dL 70-100 64 BUN 15 mg/dL 6-24 Creatinine 0.70 mg/dL 0.50-1.40 One Over Creatinine 1.40 BUN/Creatinine Ratio 21.4 High 8-20 Calcium 8.8 mg/dL 8.1-9.9 65 Total Protein 6.9 GM/DL 6.2-8.1 Albumin 4.3 GM/DL 3.6-5.4 Globulin 2.6 GM/DL 2-4 Albumin/Globulin Ratio 1.7 1-3 Bilirubin Total 0.7 mg/dL 0.4-1.5 66 Alkaline Phosphatase 63 U/L 30-110 Alt (SGPT) 16 U/L 14-54 Ast (Sgot) 22 U/L 12-42 eGFR Non- 108.4 > 60 eGFR 131.1 > 60 67 CBC With 11/30/2009 [facility] White Blood 6.6 CUMM 4.8-10.8 Electronic Diff [phone] Count Red Cell Count 4.45 CUMM 4.2-5.4 Hemoglobin 14.0 g/dL 12.0-16.0 Hematocrit 41 % 35-47 Mean Corpuscular Volume 92 um3 79-97 Mean Corpuscular Hemoglob 32 pg High 27-31 Mean Corpuscular HGB Cone 34 g/dL 32-36 Redcell Distribution WDTH 13 % 10.5-15 Platelet Count 159 CUMM 150-450 Mean Platelet Volume 8.4 um3 7.4-10.4 Gran % 56.9 % 38-83 Lymph % 32.6 % 25-47 Mononuclear % 7.6 % 1-9 Eosinophil % 2.3 % 0-6 Basophil % 0.6 % 0-2 Abs Lymphs 2.2 1.0-4.8 Abs Mononuclear 0.5 0-0.8 Absolute Neutrophil Count 3.7 1.5-7.7 Abs Eosinophils 0.2 0-0.6 Abs Basophils 0 0-0.2 Urinalysis 11/30/2009 [facility] Ua Color YELLOW Yellow [phone] Appearance-Urine CLEAR Clear Specific [place]-Ur 1.018 1.010-1.030 Esterase-Urine NEGATIVE Negative Nitrite NEGATIVE Negative Bmdxioggbrfh-Nc-WQD NEGATIVE Negative Protein-Urine TRACE Negative PH-Urine 5.0 5-9 Blood-Urine NEGATIVE Negative Ketones-Urine NEGATIVE Negative Bilirubin-Ur NEGATIVE Negative Glucose-Urine NEGATIVE Negative GC/Chlamydia Dna 11/30/2009 [facility] GC By Aptima NEGATIVE Negative 68 Probe [phone] CHL By Aptima NEGATIVE Negative 69 Wet Prep 11/30/2009 [facility] Wet Prep SMEAR REVIEWED 70 [phone] B <SEE NOTE> (HCG) 11/28/2009 [facility] Specific 1.019 1.010- Urine [phone] [place] 1.030 Urine NEGATIVE Negative 71 Urinalysis 11/28/2009 [facility] Ua Color YELLOW Yellow W/Microscopic [phone] Appearance-Urine CLEAR Clear Specific [place]-Ur 1.019 1.010-1.030 Esterase-Urine NEGATIVE Negative Nitrite NEGATIVE Negative Mvcnalyecsdv-Qs-TVC NEGATIVE Negative Protein-Urine NEGATIVE Negative PH-Urine 6.0 5-9 Blood-Urine 2+ Negative Ketones-Urine NEGATIVE Negative Bilirubin-Ur NEGATIVE Negative Glucose-Urine NEGATIVE Negative WBC-Urine 0-2 0-5 RBC-Urine 3-5 0-2 Mucus Urine SMALL None Epith Cells-Ur FEW None Bacteria-Urine TRACE None Comp Metabolic Panel 11/28/2009 [facility] Sodium 141 mmol/L 135-145 [phone] Potassium 3.9 mmol/L 3.5-5.0 Chloride 107 mmol/L 101-111 Co2 (Carbon Dioxide) 27.0 mmol/L 22-32 Anion Gap 7.0 mmol/L 2-11 72 Glucose 87 mg/dL 70-100 73 BUN 11 mg/dL 6-24 Creatinine 0.60 mg/dL 0.50-1.40 One Over Creatinine 1.60 BUN/Creatinine Ratio 18.3 8-20 Calcium 9.6 mg/dL 8.1-9.9 74 Total Protein 7.0 GM/DL 6.2-8.1 Albumin 4.2 GM/DL 3.6-5.4 Globulin 2.8 GM/DL 2-4 Albumin/Globulin Ratio 1.5 1-3 Bilirubin Total 0.7 mg/dL 0.4-1.5 75 Alkaline Phosphatase 58 U/L 30-110 Alt (SGPT) 12 U/L Low 14-54 Ast (Sgot) 16 U/L 12-42 eGFR Non- 129.5 > 60 eGFR 156.6 > 60 76 CBC With 11/28/2009 [facility] White Blood 6.4 CUMM 4.8-10.8 Electronic Diff [phone] Count Red Cell Count 4.38 CUMM 4.2-5.4 Hemoglobin 13.9 g/dL 12.0-16.0 Hematocrit 40 % 35-47 Mean Corpuscular Volume 90 um3 79-97 Mean Corpuscular Hemoglob 32 pg High 27-31 Mean Corpuscular HGB Cone 35 g/dL 32-36 Redcell Distribution WDTH 13 % 10.5-15 Platelet Count 155 CUMM 150-450 Mean Platelet Volume 9.0 um3 7.4-10.4 Gran % 58.2 % 38-83 Lymph % 32.5 % 25-47 Mononuclear % 7.4 % 1-9 Eosinophil % 1.5 % 0-6 Basophil % 0.4 % 0-2 Abs Lymphs 2.1 1.0-4.8 Abs Mononuclear 0.5 0-0.8 Absolute Neutrophil Count 3.7 1.5-7.7 Abs Eosinophils 0.1 0-0.6 Abs Basophils 0 0-0.2 Urinalysis 10/22/2009 [facility] Ua Color YELLOW Yellow W/Microscopic [phone] Appearance-Urine CLEAR Clear Specific [place]-Ur 1.015 1.010-1.030 Esterase-Urine NEGATIVE Negative Nitrite NEGATIVE Negative Wherreeqexyb-Vo-HWL NEGATIVE Negative Protein-Urine NEGATIVE Negative PH-Urine 6.0 5-9 Blood-Urine 3+ Negative Ketones-Urine NEGATIVE Negative Bilirubin-Ur NEGATIVE Negative Glucose-Urine NEGATIVE Negative WBC-Urine RARE 0-5 RBC-Urine 2-4 0-2 Epith Cells-Ur RARE None Amorphous Sed-U RARE None CBC With 10/22/2009 [facility] White Blood 5.4 CUMM 4.8-10.8 Electronic Diff [phone] Count Red Cell Count 4.37 CUMM 4.2-5.4 Hemoglobin 13.9 g/dL 12.0-16.0 Hematocrit 40 % 35-47 Mean Corpuscular Volume 92 um3 79-97 Mean Corpuscular Hemoglob 32 pg High 27-31 Mean Corpuscular HGB Cone 35 g/dL 32-36 Redcell Distribution WDTH 14 % 10.5-15 Platelet Count 142 CUMM Low 150-450 Mean Platelet Volume 8.8 um3 7.4-10.4 Gran % 74.4 % 38-83 Lymph % 18.9 % Low 25-47 Mononuclear % 5.2 % 1-9 Eosinophil % 1.0 % 0-6 Basophil % 0.5 % 0-2 Abs Lymphs 1.0 1.0-4.8 Abs Mononuclear 0.3 0-0.8 Absolute Neutrophil Count 4.0 1.5-7.7 Abs Eosinophils 0.1 0-0.6 Abs Basophils 0 0-0.2 77 Basic Metabolic 10/22/2009 [facility] Sodium 139 mmol /L 135-145 Panel [phone] Potassium 4.1 mmol/L 3.5-5.0 Chloride 105 mmol/L 101-111 Co2 (Carbon Dioxide) 27.0 mmol/L 22-32 Anion Gap 7.0 mmol/L 2-11 78 Glucose 137 mg/dL High 70-100 79 BUN 15 mg/dL 6-24 Creatinine 0.70 mg/dL 0.50-1.40 One Over Creatinine 1.40 BUN/Creatinine Ratio 21.4 High 8-20 Calcium 9.0 mg/dL 8.1-9.9 80 eGFR Non- 108.4 > 60 eGFR 131.1 > 60 81 Laboratory test 09/28/2009 [facility] Strep Screen NEG Neg finding (607)- - Laboratory test 08/31/2009 In House Lab Strep Screen NEG Neg finding (607)- - Mumps Virus AB Igg 06/22/2009 [facility] Mumps Virus Positive Negative 82 Igm [phone] AB, Igg Index Value 3.67 0.00-0.89 83 Mumps Virus AB, Igm Negative Negative Index Value 0.00 0.00-0.79 84 Up 03/20/2009 [facility] Specific [place] 1.004 Low 1.010-1.030 [phone] Urine NEGATIVE Negative 85 Urinalysis Stat 03/16/2009 [facility] Ua Color YELLOW [phone] Appearance-Urine CLEAR Specific [place]-Ur 1.024 1.010-1.030 Esterase-Urine NEGATIVE Negative Nitrite NEGATIVE Negative Yvpirnocdnky-Fc-LLB NEGATIVE Negative Protein-Urine NEGATIVE Negative PH-Urine 6.0 5-9 Blood-Urine NEGATIVE Negative Ketones-Urine NEGATIVE Negative Bilirubin-Ur NEGATIVE Negative Glucose-Urine NEGATIVE Negative Urine DIP 03/13/2009 In House Lab Leukocytes NEG Neg (607)- - Urine Nitrites NEG Neg Urine pH 5 5-6 Total Protein, Urine NEG Neg Urine Glucose NORM Norm Urine Ketones NEG Neg Urobilinogen NORM Norm Urine Bilirubin NEG Neg Urine Blood 250 High Neg Specific [place] N/A Low 1.01-1.02 Urine DIP 02/10/2009 In House Lab Leukocytes NEG Neg (607)- - Urine Nitrites NEG Neg Urine pH 5 5-6 Total Protein, Urine NEG Neg Urine Glucose NORM Norm Urine Ketones NEG Neg Urobilinogen NORM Norm Urine Bilirubin NEG Neg Urine Blood NEG Neg Specific [place] N/A Low 1.01-1.02 Laboratory test finding 10/01/2001 In House Lab Strep Screen NEG Neg (607)- - 1 [place] sensitive strep. Could treat with anything if symptoms persist. PCN/ amox would be best. 2 SEE RESULT BELOW Name: JOCELIN IVERSON : [address]: Ismael Elaine MD Acct: [id number] Unit: [id number] AGE: 32 Location: [facility] Re08/14/17 SEX: F Status: REG REF SPEC: [id number] JOSE L: 08/14/17-[address]: Ismael Elaine MD REQ: [id number] RECD: 08/14/17 STATUS: COMP _ SOURCE: WOUND SPDESC: ORDERED: Culture Stain COMMENTS: [id number] Specimen Description Left finger wound Procedure Result Reported Site Wound/Misc Gram Stain Final 08/15/17- 0748 ML 1+ Epithelial Cells 1+ Neutrophils 3+ Gram Positive Cocci 2+ Gram Negative Bacilli Wound/Misc Culture Final 08/18/17- 1134 ML Organism 1 STREPTOCOCCUS ANGINOSUS Quantity 2+ Organism 2 NORMAL JARVIS Quantity 1+ 1. STREPTOCOCCUS ANGINOSUS M.I.C. RX --------- ------ Chloramphenicol 2 S Ampicillin 0.25 S Penicillin 0.12 S Meropenem 0.25 S Cefepime 1 S * Cefotaxime 0.5 S Ceftriaxone 0.5 S Levofloxacin 0.5 S Azithromycin <=0.25 S Clindamycin <=0.06 S CONTINUED ON NEXT PAGE DEPARTMENT OF PATHOLOGY, [address] [place] [address] Checo Armendariz M.D. Director NATHANIEL # [id number] Patient: JOCELIN IVERSON [id number] (Continued) Specimen: [id number] Collected: 08/14/17 Received: 08/14/17 (Continued) Procedure Result Reported Site Wound/Misc Culture Final (continued) 08/18/171133 1. STREPTOCOCCUS ANGINOSUS (continued) PaolaCPastora RX --------- ------ Erythromycin <=0.06 S Tetracycline <=0.50 S Vancomycin 1 S * ML - Main Lab . END OF REPORT DEPARTMENT OF PATHOLOGY, [address] [place] [address] Checo Armendariz M.D. Director [facility] # [id number] 3 *Ascorbic acid is present which may interfere with detection of blood. 4 SEE RESULT BELOW Name: JOCELIN IVERSON : [address]: Dorita FOLEY Acct: [id number] Unit: [id number] AGE: 30 Location: [facility] Re12/20/15 SEX: F Status: REG REF SPEC: [id number] JOSE L: 12/20/[address] [facility] [address]: Dorita FOLEY REQ: [id number] RECD: 12/20/15 STATUS: ANGEL GARDINER DR: Casnadra Flowers CLEAT THROWER _ SOURCE: URINE SPDESC: ORDERED: Urine Culture QUERIES: Urine Source: Clean Catch Procedure Result Reported Site Urine Culture Final 12/21/15- 1653 ML No growth of clinically significant organisms * ML - MAIN LAB ([facility]) . END OF REPORT * ML=Testing performed at Main Lab DEPARTMENT OF PATHOLOGY, [address] [place] [address] Checo Armendariz M.D. Director [facility] # [id number] 5 SEE RESULT BELOW Name: JOCELIN IVERSON : [address]: Dorita FOLEY Acct: [id number] Unit: [id number] AGE: 30 Location: [facility] Re11/04/15 SEX: F Status: DEP REF SPEC: [id number] JOSE L: 11/04/15-[address]: Dorita FOLEY REQ: [id number] RECD: 11/04/15141 STATUS: ANGEL GARDINER DR: Casandra Flowers NP _ [facility] ORDERED: Urine Culture Procedure Result Reported Site Urine Culture Final 11/05/15- 1228 ML No growth of clinically significant organisms * ML - MAIN LAB ([facility]) . END OF REPORT * ML=Testing performed at Main Lab DEPARTMENT OF PATHOLOGY, [address] [place] [address] Checo Armendariz M.D. Director [facility] # [id number] 6 If is still suspected, please repeat test after 48 to 72 hours. . This test detects intact HCG only and is indicated for the early detection of . 7 Anion gap measurement may be of limited value in the presence of any alkalosis, especially in a combined acid base disorder. . 8 Because ethnic data is not always readily available, this report includes an eGFR for both -Americans and non- Americans. The National Kidney Disease Education Program (NKDEP) does not endorse the use of the MDRD equation for patients that are not between the ages of 18 and 70, are , have extremes of body size, muscle mass, or nutritional status, or are non- or non-. According to the National Kidney Foundation, irrespective of diagnosis, the stage of the disease is based on the level of kidney function: Stage Description GFR(mL/min/1.73 m(2)) 1 Kidney damage with normal or decreased GFR 90 2 Kidney damage with mild decrease in GFR 60-89 3 Moderate decrease in GFR 30-59 4 Severe decrease in GFR 15-29 5 Kidney failure <15 (or dialysis) 9 RUN DATE: 08/27/11 [facility] NMI LIVE PAGE 1 RUN TIME: 50 Specimen Inquiry RUN USER: INTERFACE Name: EMELIAJOCELIN M Status: DIS Madeleine Re08/22/11 Age/Sex: 26/F Unit#: [id number] Location: [facility] : [birth year] SPEC #: [id number] JOSE L: 08/22/11 STATUS: COMP REQ #: [id number] RECD: 08/22/[address]: Mirian MONAE,Fidel SOURCE: BLOOD ENTR: 08/22/[address]: Lionel VASQUEZ,Casandra Kaiser SPDESC: BLOOD,VENO ORDERED: BLOOD CULTURE ACT WKST: ORTIZ 08/23/11 #1 Procedure Result Verified Site > AEROBIC CULTURE BOTTLE Final 08/27/11- 50 ML NO GROWTH AFTER 5 DAYS > ANAEROBIC CULTURE BOTTLE Final 08/27/11- 50 ML NO GROWTH AFTER 5 DAYS - [facility] State Permit #[id number] [facility] Dates [facility] [address] DEPARTMENT OF PATHOLOGY, [facility] DATES [place], [place] [address] [facility] Permit #[id number] Checo Armendariz M.D. Director Shyam Sawyer M.D. Clinical Laboratory Director 10 Anion gap measurement may be of limited value in the presence of any alkalosis, especially in a combined acid base disorder. . 11 A metabolite of Naproxen, O-desmethylnaproxen, has been shown to interfere with the Jendrassik-Uehling method for measuring total bilirubin. Samples from patients who have taken Naproxen have shown spurious elevation in total bilirubin levels. 12 Because ethnic data is not always readily available, this report includes an eGFR for both -Americans and non- Americans. The National Kidney Disease Education Program (NKDEP) does not endorse the use of the MDRD equation for patients that are not between the ages of 18 and 70, are , have extremes of body size, muscle mass, or nutritional status, or are non- or non-. According to the National Kidney Foundation, irrespective of diagnosis, the stage of the disease is based on the level of kidney function: Stage Description GFR(mL/min/1.73 m(2)) 1 Kidney damage with normal or decreased GFR 90 2 Kidney damage with mild decrease in GFR 60-89 3 Moderate decrease in GFR 30-59 4 Severe decrease in GFR 15-29 5 Kidney failure <15 (or dialysis) 13 Anion gap measurement may be of limited value in the presence of any alkalosis, especially in a combined acid base disorder. . 14 A metabolite of Naproxen, O-desmethylnaproxen, has been shown to interfere with the Jendrassik-Uehling method for measuring total bilirubin. Samples from patients who have taken Naproxen have shown spurious elevation in total bilirubin levels. 15 Because ethnic data is not always readily available, this report includes an eGFR for both -Americans and non- Americans. The National Kidney Disease Education Program (NKDEP) does not endorse the use of the MDRD equation for patients that are not between the ages of 18 and 70, are , have extremes of body size, muscle mass, or nutritional status, or are non- or non-. According to the National Kidney Foundation, irrespective of diagnosis, the stage of the disease is based on the level of kidney function: Stage Description GFR(mL/min/1.73 m(2)) 1 Kidney damage with normal or decreased GFR 90 2 Kidney damage with mild decrease in GFR 60-89 3 Moderate decrease in GFR 30-59 4 Severe decrease in GFR 15-29 5 Kidney failure <15 (or dialysis) 16 Lymphopenia % 17 CALCIUM OXALATE 18 Anion gap measurement may be of limited value in the presence of any alkalosis, especially in a combined acid base disorder. . 19 A metabolite of Naproxen, O-desmethylnaproxen, has been shown to interfere with the Jendrassik-Uehling method for measuring total bilirubin. Samples from patients who have taken Naproxen have shown spurious elevation in total bilirubin levels. 20 Because ethnic data is not always readily available, this report includes an eGFR for both -Americans and non- Americans. The National Kidney Disease Education Program (NKDEP) does not endorse the use of the MDRD equation for patients that are not between the ages of 18 and 70, are , have extremes of body size, muscle mass, or nutritional status, or are non- or non-. According to the National Kidney Foundation, irrespective of diagnosis, the stage of the disease is based on the level of kidney function: Stage Description GFR(mL/min/1.73 m(2)) 1 Kidney damage with normal or decreased GFR 90 2 Kidney damage with mild decrease in GFR 60-89 3 Moderate decrease in GFR 30-59 4 Severe decrease in GFR 15-29 5 Kidney failure <15 (or dialysis) 21 ICTOTEST IS A QUALITATIVE CONFIRMATORY TEST FOR BILIRUBIN. 22 Lymphopenia % 23 Anion gap measurement may be of limited value in the presence of any alkalosis, especially in a combined acid base disorder. . 24 A metabolite of Naproxen, O-desmethylnaproxen, has been shown to interfere with the Jendrassik-Uehling method for measuring total bilirubin. Samples from patients who have taken Naproxen have shown spurious elevation in total bilirubin levels. 25 Because ethnic data is not always readily available, this report includes an eGFR for both -Americans and non- Americans. The National Kidney Disease Education Program (NKDEP) does not endorse the use of the MDRD equation for patients that are not between the ages of 18 and 70, are , have extremes of body size, muscle mass, or nutritional status, or are non- or non-. According to the National Kidney Foundation, irrespective of diagnosis, the stage of the disease is based on the level of kidney function: Stage Description GFR(mL/min/1.73 m(2)) 1 Kidney damage with normal or decreased GFR 90 2 Kidney damage with mild decrease in GFR 60-89 3 Moderate decrease in GFR 30-59 4 Severe decrease in GFR 15-29 5 Kidney failure <15 (or dialysis) 26 If is still suspected, please repeat test after 48 to 72 hours. . 27 ICTOTEST IS A QUALITATIVE CONFIRMATORY TEST FOR BILIRUBIN. 28 Anion gap measurement may be of limited value in the presence of any alkalosis, especially in a combined acid base disorder. . 29 Because ethnic data is not always readily available, this report includes an eGFR for both -Americans and non- Americans. The National Kidney Disease Education Program (NKDEP) does not endorse the use of the MDRD equation for patients that are not between the ages of 18 and 70, are , have extremes of body size, muscle mass, or nutritional status, or are non- or non-. According to the National Kidney Foundation, irrespective of diagnosis, the stage of the disease is based on the level of kidney function: Stage Description GFR(mL/min/1.73 m(2)) 1 Kidney damage with normal or decreased GFR 90 2 Kidney damage with mild decrease in GFR 60-89 3 Moderate decrease in GFR 30-59 4 Severe decrease in GFR 15-29 5 Kidney failure <15 (or dialysis) 30 Recommended INR for Patients on Oral Anticoagulants Prophylaxis 2.0 - 3.0 Treatment of thrombosis 2.0 - 3.0 Prevention of embolism 2.0 - 3.0 Prevention of embolism from prosthetic heart valves 2.5 - 3.5 31 DIAGNOSIS,TREATMENT,AND THERAPY MUST BE BASED ON THE INR VALUE ALONE. 32 Please note: The following may produce a false positive D Dimer test: - Rheumatoid factor greater than 60 IU/ml - Plasma hemoglobin greater than 0.05 gm/dl - Bilirubin greater than 50 mg/dl - Lipids greater than 1000 mg/dl - FDP greater than 20 ug/ml . 33 If is still suspected, please repeat test after 48 to 72 hours. . 34 COMMENTS: N 35 Anion gap measurement may be of limited value in the presence of any alkalosis, especially in a combined acid base disorder. . 36 A metabolite of Naproxen, O-desmethylnaproxen, has been shown to interfere with the Jendrassik-Uehling method for measuring total bilirubin. Samples from patients who have taken Naproxen have shown spurious elevation in total bilirubin levels. 37 Because ethnic data is not always readily available, this report includes an eGFR for both -Americans and non- Americans. The National Kidney Disease Education Program (NKDEP) does not endorse the use of the MDRD equation for patients that are not between the ages of 18 and 70, are , have extremes of body size, muscle mass, or nutritional status, or are non- or non-. According to the National Kidney Foundation, irrespective of diagnosis, the stage of the disease is based on the level of kidney function: Stage Description GFR(mL/min/1.73 m(2)) 1 Kidney damage with normal or decreased GFR 90 2 Kidney damage with mild decrease in GFR 60-89 3 Moderate decrease in GFR 30-59 4 Severe decrease in GFR 15-29 5 Kidney failure <15 (or dialysis) 38 If is still suspected, please repeat test after 48 to 72 hours. . 39 ICTOTEST IS A QUALITATIVE CONFIRMATORY TEST FOR BILIRUBIN. 40 If is still suspected, please repeat test after 48 to 72 hours. . 41 Anion gap measurement may be of limited value in the presence of any alkalosis, especially in a combined acid base disorder. . 42 A metabolite of Naproxen, O-desmethylnaproxen, has been shown to interfere with the Jendrassik-Uehling method for measuring total bilirubin. Samples from patients who have taken Naproxen have shown spurious elevation in total bilirubin levels. 43 Because ethnic data is not always readily available, this report includes an eGFR for both -Americans and non- Americans. The National Kidney Disease Education Program (NKDEP) does not endorse the use of the MDRD equation for patients that are not between the ages of 18 and 70, are , have extremes of body size, muscle mass, or nutritional status, or are non- or non-. According to the National Kidney Foundation, irrespective of diagnosis, the stage of the disease is based on the level of kidney function: Stage Description GFR(mL/min/1.73 m(2)) 1 Kidney damage with normal or decreased GFR 90 2 Kidney damage with mild decrease in GFR 60-89 3 Moderate decrease in GFR 30-59 4 Severe decrease in GFR 15-29 5 Kidney failure <15 (or dialysis) 44 Anion gap measurement may be of limited value in the presence of any alkalosis, especially in a combined acid base disorder. . 45 Note change in reference range as of 12/31/07. The change was based on recommendations from the [place]. 46 A metabolite of Naproxen, O-desmethylnaproxen, has been shown to interfere with the Jendrassik-Uehling method for measuring total bilirubin. Samples from patients who have taken Naproxen have shown spurious elevation in total bilirubin levels. 47 Because ethnic data is not always readily available, this report includes an eGFR for both -Americans and non- Americans. The National Kidney Disease Education Program (NKDEP) does not endorse the use of the MDRD equation for patients that are not between the ages of 18 and 70, are , have extremes of body size, muscle mass, or nutritional status, or are non- or non-. According to the National Kidney Foundation, irrespective of diagnosis, the stage of the disease is based on the level of kidney function: Stage Description GFR(mL/min/1.73 m(2)) 1 Kidney damage with normal or decreased GFR 90 2 Kidney damage with mild decrease in GFR 60-89 3 Moderate decrease in GFR 30-59 4 Severe decrease in GFR 15-29 5 Kidney failure <15 (or dialysis) 48 If is still suspected, please repeat test after 48 to 72 hours. . 49 Anion gap measurement may be of limited value in the presence of any alkalosis, especially in a combined acid base disorder. . 50 Note change in reference range as of 12/31/07. The change was based on recommendations from the [place] [employer]. 51 A metabolite of Naproxen, O-desmethylnaproxen, has been shown to interfere with the Jendrassik-Uehling method for measuring total bilirubin. Samples from patients who have taken Naproxen have shown spurious elevation in total bilirubin levels. 52 Because ethnic data is not always readily available, this report includes an eGFR for both -Americans and non- Americans. The National Kidney Disease Education Program (NKDEP) does not endorse the use of the MDRD equation for patients that are not between the ages of 18 and 70, are , have extremes of body size, muscle mass, or nutritional status, or are non- or non-. According to the National Kidney Foundation, irrespective of diagnosis, the stage of the disease is based on the level of kidney function: Stage Description GFR(mL/min/1.73 m(2)) 1 Kidney damage with normal or decreased GFR 90 2 Kidney damage with mild decrease in GFR 60-89 3 Moderate decrease in GFR 30-59 4 Severe decrease in GFR 15-29 5 Kidney failure <15 (or dialysis) 53 NO GROWTH AFTER 5 DAYS 54 NO GROWTH AFTER 5 DAYS 55 Anion gap measurement may be of limited value in the presence of any alkalosis, especially in a combined acid base disorder. . 56 Note change in reference range as of 12/31/07. The change was based on recommendations from the [place] [employer]. 57 Please note change in reference range effective 07 . 58 A metabolite of Naproxen, O-desmethylnaproxen, has been shown to interfere with the Jendrassik-Seven method for measuring total bilirubin. Samples from patients who have taken Naproxen have shown spurious elevation in total bilirubin levels. 59 Because ethnic data is not always readily available, this report includes an eGFR for both -Americans and non- Americans. The National Kidney Disease Education Program (NKDEP) does not endorse the use of the MDRD equation for patients that are not between the ages of 18 and 70, are , have extremes of body size, muscle mass, or nutritional status, or are non- or non-. According to the National Kidney Foundation, irrespective of diagnosis, the stage of the disease is based on the level of kidney function: Stage Description GFR(mL/min/1.73 m(2)) 1 Kidney damage with normal or decreased GFR 90 2 Kidney damage with mild decrease in GFR 60-89 3 Moderate decrease in GFR 30-59 4 Severe decrease in GFR 15-29 5 Kidney failure <15 (or dialysis) 60 If is still suspected, please repeat test after 48 to 72 hours. . 61 ICTOTEST IS A QUALITATIVE CONFIRMATORY TEST FOR BILIRUBIN. 62 SPECIMEN CONTAINS NORMAL URETHRAL OR PERINEAL JARVIS AND DOES NOT SUGGEST URINARY TRACT INFECTION 63 Anion gap measurement may be of limited value in the presence of any alkalosis, especially in a combined acid base disorder. . 64 Note change in reference range as of 12/31/07. The change was based on recommendations from the [place] [employer]. 65 Please note change in reference range effective 07 . 66 A metabolite of Naproxen, O-desmethylnaproxen, has been shown to interfere with the Jendrassik-Uehling method for measuring total bilirubin. Samples from patients who have taken Naproxen have shown spurious elevation in total bilirubin levels. 67 Because ethnic data is not always readily available, this report includes an eGFR for both -Americans and non- Americans. The National Kidney Disease Education Program (NKDEP) does not endorse the use of the MDRD equation for patients that are not between the ages of 18 and 70, are , have extremes of body size, muscle mass, or nutritional status, or are non- or non-. According to the National Kidney Foundation, irrespective of diagnosis, the stage of the disease is based on the level of kidney function: Stage Description GFR(mL/min/1.73 m(2)) 1 Kidney damage with normal or decreased GFR 90 2 Kidney damage with mild decrease in GFR 60-89 3 Moderate decrease in GFR 30-59 4 Severe decrease in GFR 15-29 5 Kidney failure <15 (or dialysis) 68 . A negative result does not preclude the presence of a C.trachomatis or N.gonorrhoeae infection because results are dependent on adequate specimen collection, absence of inhibitors, and sufficient rRNA to be detected. Test results may be affected by improper specimen collection, improper specimen storage, technical error, or specimen mixup. . 69 . A negative result does not preclude the presence of a C.trachomatis or N.gonorrhoeae infection because results are dependent on adequate specimen collection, absence of inhibitors, and sufficient rRNA to be detected. Test results may be affected by improper specimen collection, improper specimen storage, technical error, or specimen mixup. . 70 SMEAR REVIEWED BY GLEN at 1106 on 11/30/09. MODERATE (1 TO 4/HPF) ABSENT MODERATE (1 TO 4/HPF) ABSENT 71 If is still suspected, please repeat test after 48 to 72 hours. . 72 Anion gap measurement may be of limited value in the presence of any alkalosis, especially in a combined acid base disorder. . 73 Note change in reference range as of 12/31/07. The change was based on recommendations from the [place] [employer]. 74 Please note change in reference range effective 07 . 75 A metabolite of Naproxen, O-desmethylnaproxen, has been shown to interfere with the Jendrassik-Seven method for measuring total bilirubin. Samples from patients who have taken Naproxen have shown spurious elevation in total bilirubin levels. 76 Because ethnic data is not always readily available, this report includes an eGFR for both -Americans and non- Americans. The National Kidney Disease Education Program (NKDEP) does not endorse the use of the MDRD equation for patients that are not between the ages of 18 and 70, are , have extremes of body size, muscle mass, or nutritional status, or are non- or non-. According to the National Kidney Foundation, irrespective of diagnosis, the stage of the disease is based on the level of kidney function: Stage Description GFR(mL/min/1.73 m(2)) 1 Kidney damage with normal or decreased GFR 90 2 Kidney damage with mild decrease in GFR 60-89 3 Moderate decrease in GFR 30-59 4 Severe decrease in GFR 15-29 5 Kidney failure <15 (or dialysis) 77 Lymphopenia % 78 Anion gap measurement may be of limited value in the presence of any alkalosis, especially in a combined acid base disorder. . 79 Note change in reference range as of 12/31/07. The change was based on recommendations from the [place] [employer]. 80 Please note change in reference range effective 07 . 81 Because ethnic data is not always readily available, this report includes an eGFR for both -Americans and non- Americans. The National Kidney Disease Education Program (NKDEP) does not endorse the use of the MDRD equation for patients that are not between the ages of 18 and 70, are , have extremes of body size, muscle mass, or nutritional status, or are non- or non-. According to the National Kidney Foundation, irrespective of diagnosis, the stage of the disease is based on the level of kidney function: Stage Description GFR(mL/min/1.73 m(2)) 1 Kidney damage with normal or decreased GFR 90 2 Kidney damage with mild decrease in GFR 60-89 3 Moderate decrease in GFR 30-59 4 Severe decrease in GFR 15-29 5 Kidney failure <15 (or dialysis) 82 Results suggest response to immunization or prior exposure to the virus. 83 Test Performed by: [facility] Dpt of Lab Med and Pathology [address] [place] [id number] [place] Operator: Dustin Larson III, M.D. 84 Test Performed by: [facility] Dpt of Lab Med and Pathology [address] [place] [address] Guyline Operator: Dustin Larson III, M.D. 85 If is still suspected, please repeat test after 48 to 72 hours. . Procedures Date Code Description Status 08/14/2017 62751 I&D Of Abscess Completed Encounters Type Date Location Provider Dx Diagnosis Office Visit 09/26/2016 Main Office Ismael Damiánashley, J01.80 Other acute sinusitis 4:15p MD Office Visit 08/31/2013 Main Office Casandra Flowers, 034.0 Streptococcal Sore 11:15a [employer] Throat Office Visit 11/02/2012 Main Office Rekha Suarez, V70.0 Examination General 8:00a [employer] Medical Routine AT [facility] v74.1 Screening Examination Pulmonary Tuberculosis Office Visit 09/08/2012 11:00a Main Office Rekha Suarez, 382.9 Otitis Media [employer] Unspec Office Visit 07/17/2011 11:30a Main Office Rekha Suarez, 461.8 Sinusitis Acute [employer] Other Office Visit 01/11/2011 8:00a Main Office Rekha Suarez, 388.70 Otalgia & Earache [employer] Unspec Office Visit 09/11/2010 1:15p Main Office Casandra Flowers, 388.70 Otalgia & Earache [employer] Unspec Office Visit 08/30/2010 8:45a Main Office Casandra Flowers, 784.0 Headache [employer] 780.52 Insomnia Unspecified 789.04 Pain Abdominal Left Lower Quadrant Office Visit 04/12/2010 9:45a Main Office Casandra Flowers, 528.9 Oral Soft Tissue [employer] Diseases Other & Unspec 308.3 Stress Reaction Other Acute 620.2 Ovarian Cyst Other & Unspec Office Visit 03/22/2010 9:30a Main Office Casandra Flowers, 308.3 Stress Reaction [employer] Other Acute 780.52 Insomnia Unspecified Office Visit 03/08/2010 2:15p Main Office Casandra Flowers, 308.3 Stress Reaction [employer] Other Acute Office Visit 01/25/2010 2:45p Main Office Blainewtom RPastora Flowers, 784.0 Headache [employer] 382.9 Otitis Media Unspec Office Visit 01/18/2010 4:00p Main Office Casandra Flowers, 382.9 Otitis Media [employer] Unspec 784.0 Headache Office Visit 01/13/2010 10:00a Main Office Seema Yeager 382.9 Otitis Media Radha Chowdhury Unspec Office Visit 01/11/2010 3:45p Main Office Shawnti R. Storm, 784.0 Headache [employer] 599.0 UTI Urinary Tract Infection Site Not Spec Office Visit 01/08/2010 4:15p Main Office Shawnti R. 307.81 Headache Tension Storm, [employer] Office Visit 09/28/2009 8:15a Main Office Shawnti R. 465.9 URI Upper Storm, [employer] Respiratory Infections Acute Unspec Sites 309.0 Adjustment Disorder With Depression Office Visit 08/31/2009 2:30p Main Office Shawnti R. 462 Pharyngitis Acute Storm, [employer] Office Visit 08/10/2009 8:45a Main Office Shawnti R. 309.0 Adjustment Disorder Storm, [employer] With Depression Office Visit 07/20/2009 9:00a Main Office Shawnti R. 307.81 Headache Tension Storm, [employer] 309.0 Adjustment Disorder With Depression Office Visit 06/22/2009 2:45p Main Office Shawnti R. Storm, 307.81 Headache Tension [employer] 309.0 Adjustment Disorder With Depression V01.89 Other Communicable Diseases, Contact W/Or Exposure To Office Visit 05/15/2009 9:15a Main Office Shawnti R. 309.0 Adjustment Disorder Storm, [employer] With Depression Office Visit 04/20/2009 4:45p Main Office Shawnti R. 564.00 Constipation Storm, [employer] Unspecified 309.0 Adjustment Disorder With Depression Office Visit 03/13/2009 8:45a Main Office Shawnti R. 564.00 Constipation Storm, [employer] Unspecified Office Visit 02/17/2009 3:30p Main Office Shawnti R. 461.0 Sinusitis Acute Storm, [employer] Maxillary Office Visit 02/10/2009 10:15a Main Office Shawnti R. 789.09 Pain Abdominal Other Storm, [employer] Spec Site Office Visit 10/09/2001 11:45a Main Office Filomena Queen 465.9 URCaleb Mercado M.D. Respiratory Infections Acute Unspec Sites Office Visit 10/01/2001 3:00p Main Office Gloria Garcia Pharyngitis Acute Ishmael Foote Plan of Treatment 03/20/2018 - Casandra Flowers, COMPUT[employer] AS[employer]BLER-CZ00.00 Encounter for general adult medical examination without abnoComments:The patient presents to the office for her annual wellness visit. Health screening examsPAP: followed by [facility] [employer] [facility] [place]: Influenza vaccineLab test: none needed todayHealthy diet and increased physical activity was discussed with the patient. She will follow up again in one years time or sooner if needed.Recommendations:proper diet and exercise are very important for overall health. You should eat at least 5 servings of fruits and vegetables every day, this can be fresh or frozen. You should try to get at least 24 grams of fiber in your diet each day, this can be found in whole grains like wheat, brown rice, oats, Quinoa and fruits and vegetables. You should choose lean proteins such as fish, poultry, beans and legumes. You also need at least 4 servings of calcium rich foods daily , this can be in a supplement, dairy or broccoli. You should get at least 30 minutes of exercise on a daily basis, choose activities that make you feel winded but still able to talk, you should sweat and your heart rate should go up. If you have chest pain you should stop. If you can not do thirty minutes of exercise then do what you can and work towards this goal. CONTINUE TAKING A DAILY VITAMIN, KEEP YOUR APPOINTMENT WITH OB. CHECK YOUR BLOOD PRESSURE AT THE PHARMACY A FEW TIMES EACH WEEK. F YOUR READINGS REMAIN ELEVATED THEN OB WILL TREAT YOUR BLOOD PRESSURE DURING [id number] state, incidentalComments:Follow with [employer] [facility] [place].0 Calculus of kidneyNew Xrays :Ultrasound Abdomen, Limited, Scheduled: 03/23/18Comments:?RENAL STONE, HX RENAL STONES, WILL ORDER RENAL US, REFER TO UROLOGY OF POS. NO CT GIVEN STATUS
--- NOTE | 2018-04-14 08:24 | ED ---
Lower Extremity - HPI Summary HPI Summary: This pt is a 33 y/o female, currently 10 weeks , presenting to [facility] c/o right ankle pain since yesterday s/p injury. Pt reports she tripped over a chair yesterday and twisted her right ankle. Pt did fall after twisting her ankle and is unsure if she hit her abdomen. She states since then she has had pain on her right ankle with swelling. Additionally notes back cramping. Denies vaginal discharge, vaginal bleeding, abd cramping, chest pain, SOB. Pt has placed ice on her ankle and took Tylenol at 07:00 today with some relief. - History of Current Complaint Chief Complaint: EDExtremityLower Stated Complaint: RIGHT ANKLE INJURY Time Seen by Provider: 04/14/18 07:59 Hx Obtained From: Patient Hx Last Menstrual Period: 37 weeks Mechanism Of Injury: Fall From A Standing Position, Twisted Onset of Pain: Immediate Onset/Duration: Days - 1 Severity Currently: Moderate Pain Intensity: 6 Pain Scale Used: 0-10 Numeric Timing: Lasting Days - 1 Location: Is Discrete @ - right ankle Associated Signs And Symptoms: Positive: Swelling. Negative: Fever, Weakness, Dizziness, Syncope, Abdominal Pain, Knee Pain, Other - vaginal bleeding, vaginal discharge, abd cramping Aggravating Factor(s): Ambulation, Movement Alleviating Factor(s): Rest Able to Bear Weight: Yes - but painful - Allergies/Home Medications Allergies/Adverse Reactions: Allergies Allergy/AdvReac Type Severity Reaction Status Date / Time No Known Allergies Allergy Verified 01/11/16 15:01 PMH/Surg Hx/FS Hx/Imm Hx Endocrine/Hematology History: Denies: Hx Anticoagulant Therapy, Hx Diabetes, Hx Thyroid Disease Cardiovascular History: Denies: Hx Hypertension, Hx Pacemaker/ICD Respiratory History: Denies: Hx Asthma, Hx Chronic Obstructive Pulmonary Disease (COPD) History: Reports: Hx Kidney Infection - kidney stone history, Hx Kidney Stones - BILAT., Hx Renal Disease - hx stones/stent 2 wks ago/candi Sensory History: Denies: Hx Contacts or Glasses, Hx Hearing Aid Opthamlomology History: Denies: Hx Contacts or Glasses Neurological History: Reports: Hx Migraine - 2 X YR Denies: Hx Dementia, Hx Seizures Psychiatric History: Denies: Hx Substance Abuse - Surgical History Surgery Procedure, Year, and Place: 2010 [place] [facility] [place] 2010 [place] [facility] [place] 2006 [place] [facility] [place] OTHER LITHOTRIPSIES. 06/26 CYSTO ST[place] [facility] Hx Anesthesia Reactions: Yes - FREAKS OUT COMMING OUT OF GENERAL ANESTHESIA Infectious Disease History: No Infectious Disease History: Denies: Hx Hepatitis, Hx Human Immunodeficiency Virus (HIV), Traveled Outside the [place] in Last 30 Days - Family History Known Family History: Negative: Cardiac Disease, Hypertension, Diabetes - Social History Alcohol Use: None Substance Use Type: Reports: None Smoking Status (MU): Never Smoked Tobacco Review of Systems Negative: Fever, Chills Negative: Chest Pain Negative: Shortness Of Breath Negative: Abdominal Pain, Vomiting, Nausea Negative: discharge, other - vaginal bleeding Musculoskeletal: Other - POS: right ankle pain, back cramping Skin: Other - POS: swelling of right ankle All Other Systems Reviewed And Are Negative: Yes Physical Exam - Summary Physical Exam Summary: VITAL SIGNS: Reviewed. GENERAL: Patient is a well-developed and nourished female who is lying comfortable in the stretcher. Patient is not in any acute respiratory distress. HEAD AND FACE: No signs of trauma. No ecchymosis, hematomas or skull depressions. No sinus tenderness. EYES: PERRLA, EOMI x 2, No injected conjunctiva, no nystagmus. EARS: Hearing grossly intact. Ear canals and tympanic membranes are within normal limits. MOUTH: Oropharynx within normal limits. NECK: Supple, trachea is midline, no adenopathy, no JVD, no carotid bruit, no c- spine tenderness, neck with full ROM. CHEST: Symmetric, no tenderness at palpation LUNGS: Clear to auscultation bilaterally. No wheezing or crackles. CVS: Regular rate and rhythm, S1 and S2 present, no murmurs or gallops appreciated. ABDOMEN: Soft, non-tender. Abdomen is obese. No signs of distention. No rebound , no guarding, and no masses palpated. Bowel sounds are normal. EXTREMITIES: no edema, no cyanosis or clubbing. RLE: swelling in the right lateral malleolus. Good pulses. Good capillary refill. NEURO: Alert and oriented x 3. No acute neurological deficits. Speech is normal and follows commands. SKIN: Dry and warm Triage Information Reviewed: Yes Vital Signs On Initial Exam: Initial Vitals Temp Pulse Resp BP Pulse Ox 97.6 F 79 16 143/98 98 04/14/18 07:57 04/14/18 07:57 04/14/18 07:57 04/14/18 07:57 04/14/18 07:57 Vital Signs Reviewed: Yes Diagnostics - Vital Signs Vital Signs Temp Pulse Resp BP Pulse Ox 04/14/18 07:57 97.6 F 79 16 143/98 98 - Laboratory Result Diagrams: 04/14/18 08:27 04/14/18 08:31 Lab Statement: Any lab studies that have been ordered have been reviewed, and results considered in the medical decision making process. - Radiology Right ankle XR Radiology Interpretation Completed By: Radiologist Summary of Radiographic Findings: IMPRESSION: Minimally displaced distal right fibular fracture as described above. Dr. Edmondson has reviewed this report. Right foot XR Radiology Interpretation Completed By: Radiologist Summary of Radiographic Findings: IMPRESSION: Minimally displaced distal right fibular fracture as described above. Dr. Edmondson has reviewed this report. - Ultrasound No standard instances Ultrasound Interpretation Completed By: Radiologist Summary of Ultrasound Findings: US IMPRESSION: 1. Single viable- appearing intrauterine gestation with estimated gestational age based on this exam of 10 weeks 1 day. 2. Negative for perigestational hemorrhage. 3. 4.3 x 3.7 x 3.2 cm myometrial fibroid at the anterior fundus with resulting impression on the endometrium. 4. Negative for free pelvic fluid. Dr. Edmondson has reviewed this report. Re-Evaluation - Re-Evaluation First Eval Re-Evaluation Time: 10:32 Comment: OB RN unable to assess heart tone. Baby is too small. Lower Extremity Course/Dx - Course Assessment/Plan: This pt is a 33 y/o female, currently 10 weeks , presenting to [facility] c/o right ankle pain since yesterday s/p injury. Pt reports she tripped over a chair yesterday and twisted her right ankle. Pt did fall after twisting her ankle and is unsure if she hit her abdomen. She states since then she has had pain on her right ankle with swelling. Denies vaginal discharge , vaginal bleeding, abd cramping, chest pain, SOB. Pt has placed ice on her ankle and took Tylenol at 07:00 today with some relief. X-ray of the right ankle and right foot impression: Minimally displaced distal right fibular fracture. Blood work without any significant abnormality, beta hCG is 102,398. In the ED the patient was placed in a posterior splint, the patient will be non weight bearing. Patient will be discharged home with follow-up from orthopedics. I also discussed the case with and Dr. Chowdhury from [facility] and he recommends to get a pelvic ultrasound. Pelvic ultrasound impression: IMPRESSION : #. Single viable-appearing intrauterine gestation with estimated gestational age based on. this exam of 10 weeks 1 day. #. Negative for perigestational hemorrhage. #. 4.3 x 3.7 x 3.2 cm myometrial fibroid at the anterior fundus with resulting impression. on the endometrium. #. Negative for free pelvic fluid. Therefore the patient will be discharged home with follow-up with OB/ [facility] and orthopedics. Patient will be taken Tylenol for the pain. Patient will be given crutches. I discussed all the findings and test results with the patient. Patient was instructed to return to the emergency room immediately if any of the symptoms return or worsens. Plan of care was discussed with the patient and understands and agrees. All questions were answered at patient satisfaction. There were no further complaints or concerns. Lung exam before discharge: CTA B/L. Good air exchange. No wheezing or crackles heard. CVS: S1 and S2 present. No murmurs appreciated. Patient is alert and oriented x 3. Patient is hemodynamically stable. Patient will be discharged home with follow up PCP in the next 2-3 days. - Diagnoses Provider Diagnoses: Fibula fracture, Threatened - Physician Notifications Discussed Care Of Patient With: Cabrera Chowdhury Time Discussed With Above Provider: 10:35 Instructed by Provider To: Other - I discussed the case with Dr. Chowdhury, OB, who recommends an ultrasound. Discharge - Sign-Out/Discharge Documenting (check all that apply): Patient Departure - discharge home - Discharge Plan Condition: Stable Disposition: HOME Patient Education Materials: Ankle Fracture (ED) Referrals: Edis Singh MD [Medical Doctor] - Casandra Flowers NP [Primary Care Provider] - Cabrera Chowdhury MD [Medical Doctor] - Additional Instructions: Please follow up with Dr. Singh, orthopedist. Also please follow up with Dr. Chowdhury OB. FOLLOW UP WITH YOUR PRIMARY CARE PROVIDER WITHIN ONE WEEK FOR HIGH BLOOD PRESSURE NOTED TODAY. RETURN TO THE ED FOR ANY NEW OR WORSENING SYMPTOMS. - Billing Disposition and Condition Condition: STABLE Disposition: Home - Attestation Statements Document Initiated by Amanibluoise: Yes Documenting Scribe: Rafia Paniagua Provider For Whom Nickie is Documenting (Include Credential): Tyree Edmondson MD Scribe Attestation: Rafia Olson, scribed for Tyree Edmondson MD on 04/14/18 at 1830. Scribe Documentation Reviewed: Yes Provider Attestation: The documentation as recorded by the Rafia barlow accurately reflects the service I personally performed and the decisions made by , Tyree Edmondson MD Status of Scribe Document: Viewed
[2018-04-14] MEDS ORDERED: Acetaminophen TAB* 325 MG PO ONE (08:28)
[2018-04-14 08:44] LABS: ABS Basophils 0 10^3/ul (0-0.2); ABS Eosinophils 0 10^3/ul (0-0.6); ABS Lymphocytes 1.2 10^3/ul (1.0-4.8); ABS Monocytes 0.5 10^3/ul (0-0.8); ABS Neutrophils 5.3 10^3/ul (1.5-7.7); ABS Nucleated RBC 0 10^3/ul; Eosinophil % 0.4 %; Hematocrit 42 % (35-47); Hemoglobin 14.4 g/dl (12.0-16.0); Lymphocyte % 17.2 %; Mean Corpuscular HGB Conc 34 g/dl (31-36); Mean Corpuscular Hemoglobin 31 pg (27-31); Mean Corpuscular Volume 90 fL (80-97); Mean Platelet Volume 8.6 fL (7.4-10.4); Nucleated Red Blood Cells % 0.1; Platelet Count 174 10^3/ul (150-450); Red Blood Count 4.72 10^6/ul (4.00-5.40); Red Cell Distribution Width 13 % (10.5-15); White Blood Count 7.1 10^3/ul (3.5-10.8)
[2018-04-14 08:59] LABS: EGFR Non-African American 116.7 (>60)
--- NOTE | 2018-04-14 09:38 | PN ---
Progress Note - Progress Note Date of Service: 04/14/18 Note: Split application: Right ankle splinted with a posterior orthoglass. Normal circulation pre and post splint.
[2018-04-14 12:28] VITALS: BP 131/101
== END 2018-04-14 12:05 | disposition home or self-care (01) ==
LOC: ED 07:55
DX: O99.89 Other specified diseases and conditions complicating pregnancy, childbirth and the puerperium (principal); S82.831A Other fracture of upper and lower end of right fibula, initial encounter for closed fracture; Z3A.10 10 weeks gestation of pregnancy; W18.40XA Slipping, tripping and stumbling without falling, unspecified, initial encounter; Y92.9 Unspecified place or not applicable; Z87.442 Personal history of urinary calculi
CPT/HCPCS: 29515; 36415; 76801; 80053; 83030; 84702; 85025; 86850; 86900; 86901; 99282; A9270-GY

== ENCOUNTER 2018-10-16 09:55 | Inpatient (IN) | payer OTHER ==
[2018-10-16] MEDS ORDERED: Lactated Ringers 1000 ML Bag* 1,000 ML IV ONE ×2 (10:00→13:26)
[2018-10-16] MEDS ORDERED: Lactated Ringers 1000 ML Bag* 1,000 ML IV SCH ×3 (10:00→23:00)
[2018-10-16] MEDS ORDERED: Buffered Lidocaine 1% SYRIN* 1 ML/SYRINGE INTRADERM ONE (10:00)
[2018-10-16] MEDS ORDERED: Magnesium Sulf 4 GM/100 ML IV* 4,000 MG/100 ML BAG IVPB ONE (10:00)
--- NOTE | 2018-10-16 10:49 | HP ---
General Information - Reason for Visit sent from office by Dr weinberg for worsening preeclampsia . pt rpesented with 2 days of headache / + nausea/ bp in office 162 / 98 and 2 + proteinuria / pt with diagnosed preeclampsia leah;ier in and has been followed closely. bpp today was reassuring and efw 5lbs 13 ozs - General Information Maternal Age: 33 Grav: 8 Para: 6 SAB: 1 IEA: 0 Estimated Due Date: 11/13/18 Determined By: LMP Maternal Blood Type and Rh: O Positive - Results this Serology/RPR Result: Non-Reactive Rubella Result: Non-Immune HBsAg Result: Negative HIV Result: Negative GBS Culture Result: Negative Past Medical History Delivery History: Hx Uncomplicated Vaginal Delivery Pertinent Past Medical History: See Records Pertinent Past Surgical History: See Records Pertinent Family History: Non-Contributory - Antepartal Records Antepartal Records: Reviewed, Complicated by: - preeclampsia and hypertension. grand multiparity. recieved steroids in August Review of Systems Constitutional: Uncomfortable CV Complaint: No Respiratory: Shortness of Breath: No Gastrointestinal: Nausea, Vomiting Genitourinary: No Bleeding, No Leaking Fluid Musculoskeletal: Pressure Neurological: Headache Movement: Normal Exam Allergies/Adverse Reactions: Allergies No Known Allergies Allergy (Verified 09/05/18 11:33) - Measurements Height: 5 ft 2.5 in Weight: 208 lb Weight in lbs: [phone] Body Mass Index (BMI): 37.4 Pre- Weight: 200 lb Weight Gained This : 8 lbs and 0 ozs - Exam Breast: Breast Exam Deferred Extremities: Edema - +2 / and periorbital Heart: Normal Rhythm/Heart Sounds HEENT: No Significant Findings Lungs: Clear Bilaterally Rectal: Rectal Exam Deferred Reflexes: DTR 2+ - Hyperreflexic in office / not redone here Targeted Exam Findings Cervical Exam: 2cm Effacement: 80% Station: -1 Presenting Part: Vertex Membrane Status: AROM EFM Findings - External Monitor Findings Baseline Heart Rate: 135 External Monitor Findings: Accelerations Present, Variability Moderate External Monitor Findings Comment: category 1 tracing Contractions: Irregular Assessment/Plan - Obstetrical Risk Factors Obstetrical Risk Factors: PreEclampsia with Severe Features - Plan Plan: Induction, Mag Sulfate, Admit - Anticipate Vaginal Delivery
[2018-10-16] MEDS: Magnesium Sulfate OB PREMIX* 40 GM/1,000 ML BAG IVPB SCH (10:53)
[2018-10-16 10:55] LABS: ABS Lymphocytes 1.2 10^3/ul (1.0-4.8); ABS Monocytes 0.5 10^3/ul (0-0.8); ABS Neutrophils 5.2 10^3/ul (1.5-7.7); Eosinophil % 0.4 %; Hematocrit 39 % (35-47); Hemoglobin 13.4 g/dL (12.0-16.0); Lymphocyte % 17.5 %; Mean Corpuscular HGB Conc 34 g/dL (31-36); Mean Corpuscular Hemoglobin 31 pg (27-31); Mean Corpuscular Volume 90 fL (80-97); Mean Platelet Volume 9.9 fL (7.4-10.4); Platelet Count 149 10^3/uL (150-450); Red Blood Count 4.38 10^6 /uL (3.70-4.87); Red Cell Distribution Width 15 % (10-15)
[2018-10-16 11:00] LABS: Albumin 3.4 g/dL (3.2-5.2); Albumin/Globulin Ratio 1.1 (1-3); BUN/Creatinine Ratio 11.8 (8-20); Calcium 9.1 mg/dL (8.6-10.3); Globulin 3.1 g/dL (2-4); Potassium 4.2 mmol/L (3.5-5.0); Total Bilirubin 0.5 mg/dL (0.2-1.0); Total Protein 6.5 g/dL (6.4-8.9)
[2018-10-16] MEDS ORDERED: Oxytocin in LR* 20 UNITS/1,000 ML BAG IVPB SCH (11:00)
[2018-10-16] MEDS ORDERED: OBEPIDURAL* 250 ML EPIDURAL ONE (12:25)
[2018-10-16] MEDS ORDERED: Sodium Citrate/Citric Acid* 15 ML UDC PO PRN (13:26)
[2018-10-16] MEDS ORDERED: Famotidine TAB* 20 MG PO PRN (13:26)
[2018-10-16] MEDS ORDERED: Lactated Ringers 1000 ML Bag* 500 ML IV PRN ×2 (13:26)
[2018-10-16] MEDS ORDERED: Phenylephrine 40 MCG/ML SYRINGE IV PUSH PRN ×2 (13:26)
[2018-10-16] MEDS ORDERED: OBEPIDURAL* 250 ML EPIDURAL SCH (14:00)
[2018-10-16] MEDS ORDERED: Acetaminophen TAB* 325 MG PO PRN (20:15)
[2018-10-16] MEDS ORDERED: Acetaminophen TAB* 325 MG ONE (20:24)
[2018-10-16] MEDS ORDERED: Dibucaine 1% 28.35 GM TUBE PR PRN (22:08)
[2018-10-16] MEDS ORDERED: Witch Hazel PAD* JAR TOPICAL PRN (22:08)
[2018-10-16] MEDS ORDERED: Glycerin ADULT SUPP PR PRN (22:08)
--- NOTE | 2018-10-16 23:25 | PROCNOTE ---
[facility] OB: Delivery Note - Delivery A Date of : 10/16/18 Time of : 22:00 Sex: Male Score 1 Minute: 9 Score 5 Minutes: 9 Gestational Age in Weeks and Days at Delivery: 36 Weeks and 0 Days Delivery Method: Spontaneous Vaginal Labor: Induced Did Patient attempt ?: N/A, No Previous Amniotic Fluid: Clear Estimated Blood Loss: 200 Anesthesia/Analgesia: CEI for Labor Delivered By: Cabrera Chowdhury - Nursery Level of Nursery: Regular/Bedside - Perineum Perineal Injury: None/Intact Perineal Repair: None - pt pushed x 3 with rapid descent and delivery - Events Delivery Events of Note: Pitocin During Labor, Mag Sulfate Given - Risk for Falls Delivered OB Patient- Risk for Falls: Magnesium Sulfate in Use Fall Risk: Patient is at High Risk for Falls
[2018-10-17] MEDS: Ibuprofen TAB* 600 MG PO PRN ×4 (00:17→18:11)
[2018-10-17] MEDS: Oxytocin in LR* 20 UNITS/1,000 ML BAG IVPB SCH ×2 (00:20→04:56)
[2018-10-17] MEDS: Magnesium Sulfate OB PREMIX* 40 GM/1,000 ML BAG IVPB SCH (04:56)
[2018-10-17] MEDS: Acetaminophen TAB* 325 MG PO PRN (05:46)
[2018-10-17] MEDS ORDERED: Magnesium Sulfate OB PREMIX* 40 GM/1,000 ML BAG IVPB SCH (06:35)
[2018-10-17] MEDS ORDERED: Misoprostol TAB* 200 MCG PR ONE (06:37)
[2018-10-17 06:40] LABS: ABS Lymphocytes 1.1 10^3/ul (1.0-4.8); ABS Monocytes 0.9 10^3/ul (0-0.8); Eosinophil % 0.2 %; Hematocrit 33 % (35-47); Hemoglobin 11.4 g/dL (12.0-16.0); Lymphocyte % 10.5 %; Mean Corpuscular HGB Conc 34 g/dL (31-36); Mean Corpuscular Hemoglobin 31 pg (27-31); Mean Corpuscular Volume 90 fL (80-97); Mean Platelet Volume 9.9 fL (7.4-10.4); Platelet Count 113 10^3/uL (150-450); Red Blood Count 3.69 10^6 /uL (3.70-4.87); Red Cell Distribution Width 15 % (10-15); White Blood Count 10.1 10^3/uL (3.5-10.8)
[2018-10-17] MEDS: oxyCODONE/Acetamin 5/325 MG* TAB PO PRN ×4 (06:44→20:35)
[2018-10-17] MEDS: Simethicone TAB* 80 MG TAB.CHEW PO SCH ×2 (08:42→13:24)
[2018-10-17] MEDS ORDERED: Ferrous Gluconate TAB* 324 MG TAB PO SCH (09:00)
[2018-10-17] MEDS: Docusate CAP* 100 MG PO SCH ×3 (09:50→20:35)
--- NOTE | 2018-10-17 11:12 | PN ---
Progress Note - Progress Note Date of Service: 10/17/18 SOAP: Subjective: [Patient is post induction of labor for severe pre-eclampsia and vaginal delivery. She is on Magnesium sulfate for eclampsia prophylaxis. She denies headache, visual changes, chest pain or shortness of breath.] Objective: [ Vital Signs Temp Pulse Resp BP Pulse Ox 98.7 F 103 18 151/95 10/17/18 07:59 10/17/18 09:20 10/17/18 10:44 10/17/18 09:20 Intake & Output 10/15/18 10/16/18 10/17/18 10/18/18 06:59 06:59 06:59 06:59 Intake Total 1979 Output Total 2900 400 Balance -921 -400 Weight 208 lb Intake: IV Fluids 1000 LR with pit 1000 Medicated IV 979 GEN - Magnesium 979 Output: Sofia 2900 400 Intake and Output Start: 10/16/18 09: 55 Freq: Status: Active Protocol: Document 10/17/18 00:18 [id number] (Rec: 10/17/18 00:18 [id number]) Output Output, Urine Output, Sofia Amount 1,300 Document 10/17/18 03:36 [id number] (Rec: 10/17/18 03:37 [id number] [facility]- [id number]) Output Output, Urine Output, Sofia Amount 1,300 Document 10/17/18 05:04 [id number] (Rec: 10/17/18 05:04 [id number]) Output Output, Urine Output, Sofia Amount 300 Document 10/17/18 08:00 [id number] (Rec: 10/17/18 08:[id number] [id number] Output Output, Urine Output, Sofia Amount 400 Lungs CTA B/L CV RRR Abdomen soft, not tender, uterus firm below U, VE MRL LE +2 reflexes b/l] Assessment: [HD 1 post induction for severe pre-eclampsia on MgSO4. Continue current care. Patient is voiding well, Her BP have been stable for the most part save her most recent at 151/95, if BP persist at or above 150 systolic or 100 diastolic will consider antihypertensive medication] Plan: [Continue current care, assesment and plan discussed with her nurse.]
[2018-10-18] MEDS: oxyCODONE/Acetamin 5/325 MG* TAB PO PRN ×4 (02:55→18:22)
[2018-10-18] MEDS: Ibuprofen TAB* 600 MG PO PRN ×3 (04:19→21:02)
[2018-10-18] MEDS: Docusate CAP* 100 MG PO SCH ×3 (07:58→21:02)
[2018-10-18] MEDS: Acetaminophen TAB* 325 MG PO PRN (21:02)
[2018-10-19] MEDS: Acetaminophen TAB* 325 MG PO PRN (03:28)
[2018-10-19] MEDS: Ibuprofen TAB* 600 MG PO PRN ×3 (03:28→17:06)
[2018-10-19] MEDS: Docusate CAP* 100 MG PO SCH ×2 (09:42→14:57)
[2018-10-19 17:10] VITALS: BP 146/95
[2018-10-19] MEDS ORDERED: Measles, Mumps,Rubella VACC* 0.5 ML/VIAL SUBCUT ONE (18:02)
== END 2018-10-19 18:30 | disposition home or self-care (01) | DRG 560 ==
LOC: MCHOBOUT 09:55 → MCHOB 10:00
PROVIDERS: ADMIT Obstetrics & Gynecology; ATTEND Obstetrics & Gynecology
PROC: 10E0XZZ Delivery of Products of Conception, External Approach (ICD-10-PCS; principal; 2018-10-16)
PROC: 3E033VJ Introduction of Other Hormone into Peripheral Vein, Percutaneous Approach (ICD-10-PCS; 2018-10-16)
PROC: 10907ZC Drainage of Amniotic Fluid, Therapeutic from Products of Conception, Via Natural or Artificial Opening (ICD-10-PCS; 2018-10-16)
DX: O14.14 Severe pre-eclampsia complicating childbirth (principal); Z37.0 Single live birth; Z3A.36 36 weeks gestation of pregnancy
CPT/HCPCS: 36415; 80053; 85025; 86850; 86900; 86901; 90707; A9270-GY; J3475